=== PATIENT | female | born 1950 | race Caucasian/White ===

== ENCOUNTER 2017-12-25 19:23 | Inpatient (IN) ==
[2017-12-25] MEDS ORDERED: 0.9 % Sodium Chloride 1,000 ML ONE (19:47)
[2017-12-25] MEDS ORDERED: *HR* Heparin 10,000 UNIT/10 ML VIAL ONE (19:47)
[2017-12-25] MEDS ORDERED: ISOVUE-370 200 ML INFUS..BTL IV ONE ×2 (19:47→19:58)
[2017-12-25] MEDS ORDERED: Heparin 1,000 UNITS/500 mL 500 ML ONE (19:47)
[2017-12-25] MEDS ORDERED: Nitroglycerin 1,000 MCG/10 ML VIAL IV ONE (19:48)
[2017-12-25] MEDS ORDERED: *HR* FentaNYL (PF) 250 MCG/5 ML VIAL ONE (19:59)
[2017-12-25] MEDS ORDERED: *HR* Bivalirudin 250 MG VIAL IVC ONE (19:59)
[2017-12-25] MEDS ORDERED: *HR* Midazolam HCl 5 MG/5 ML VIAL IVP ONE (19:59)
--- NOTE | 2017-12-25 20:40 | Cardiology History & Physical ---
Date of Encounter: 12/25/17 Time of Encounter: 20:38 Assessment and Plan (1) Acute coronary syndrome Current Visit: Yes Status: Acute The assessment and plan as outlined above was discussed with the patient and/or family members who expressed understanding and agreement. All questions were answered. Recommend cardiac catheterization. History of Present Illness Chief complaint: Chest pain HPI: Ms. Law is a 67 year old female who presented to an outside hospital with complaints of chest discomfort. She describes chest discomfort which was present all day yesterday and today. She describes as pressure-like with associated nausea and diaphoresis. She also had shortness of breath. She radiation down her arms. She thought that it was a panic attack. Troponin is 13. She continues to have chest pain. Past Med Surg Social Fam HX - Past Medical History Medical history: arthritis, hyperlipidemia, hypertension, other (Hyperlipidemia , anxiety) Psychiatric history: panic disorder - Social History Smoking Status: Current every day smoker Smokeless Tobacco Status: No Alcohol use: none Drug use: none Medications and Allergies ALPRAZolam [Xanax 0.5 MG Tablet] 0.5 mg PO TID PRN 12/25/17 [History] Amlodipine Besylate/Benazepril [Lotrel 10-20 mg Capsule] 1 each PO DAILY [History] Atorvastatin [Lipitor] 40 mg PO HS 12/25/17 [History] Levothyroxine [Synthroid] 88 mcg PO DAILY 12/25/17 [History] Metoprolol [Lopressor] 25 mg PO BID 12/25/17 [History] Quetiapine Fumarate [SEROquel] 25 mg PO HS 12/25/17 [History] Venlafaxine XR (24 HR) [Effexor XR] 150 mg PO DAILY 12/25/17 [History] 3 Allergy/AdvReac Type Severity Reaction Status Date / Time No Known Allergies Allergy Verified 12/25/17 17:39 All Systems Review: The remainder of the systems were reviewed and are negative Physical Examination General: Conversant, No Apparent Distress HEENT: Atraumatic, Normocephaly, Mucus Membranes Moist Neck: No JVD, Normal carotid pulses Cardiac: Reg Rate and Rhythm, Normal S1 and S2, No Murmur Lungs: Normal Breath Sounds, No Wheeze, Rales, Rhonchi Neuro: Alert and responsive, No focal deficits noted Abdomen: Soft, Non-Tender Skin: No rashes noted on visualized skin Musculoskeletal: No Chest Wall Tenderness Extremities: No Clubbing, No Cyanosis, No Edema, Normal Pulses Results - EKG Interpretation EKG results cardiology: personally reviewed
--- NOTE | 2017-12-25 20:42 | Pre-Sedation Evaluation ---
Pre-sedation evaluation - Pre-sedation checklist Date of procedure: 12/25/17 Recent Vitals: Cardiac catheterization with possible coronary intervention H&P (including ROS) documented in medical record: Yes Previous reaction to sedatives/anesthetics: No Dietary Status: unknown Airway Assessment: Patient can open mouth completely, TMJ function normal Dentition: poor dentition Possible difficult airway: No ASA Classification *see protocol: CLASS II-Mild systemic disease Plan of Care: Pt appropriate candidate for procedure/moderate/conscious sedation
[2017-12-25] MEDS ORDERED: Tirofiban 12.5 MG/250ML 12.5 MG/250 ML BAG ONE (20:53)
--- NOTE | 2017-12-25 21:54 | Invasive Diagnostic Lab Proc ---
Name: Veronica Law Date of Study: 12/25/2017 Date: 1950 Ht: 64.2in Medical Record#: [id number] Age: 67 Wt: 191.80lb Gender: Female BSA: 1.93 Order #: [id number] BMI: 32.74 Physicians Procedure Physician: Vinnie Monterroso MD Referring MD: Referring MD: Staff Name Position Time In Emelia Gould RN Chief [facility] Division 07:56 PM Sandra Singh RT (R) Monitor 07:56 PM Kia, Snehal RT (R) Scrub 07:57 PM Indications Indication Non-Stemi Procedures Performed Procedure L HRT ARTERY/VENTRICLE ANGIO PRQ CARD BM STENT W/ANGIO 1 VSL Pre-Procedure Checklist Informed consent is complete signed and on chart. H&P is on chart. ID band is on and ID verified with patient. Patient NPO for procedure The procedure was described for the patient and questions were answered. ECG is on chart. Plan of Care Patient will tolerate the procedure without complications. Adequate level of comfort will be maintained. Hemodynamics will remain stable Patient will recover from procedure without complications. Respiratory function will be maintained. Cardiac rhythm will remain stable. Patient temperature will be maintained. Patient and/or family have verbalized understanding of the procedure. Patient Education Intravenous Access Time IV Size Location DC'd Fluid/Drip Rate Units RN 20g 1 1/4" Patent On Arrival Lt Antecubital Emelia Gould RN 18g 1 1/4" Patent On Arrival Rt Arm 0.9NaCl 25 ml/hr Emelia Gould RN Allergies No Known Allergies NKDA Vital Signs Time BP (mmHg) HR (bpm) O2 Sat. RR (bpm) LOC 07:56 PM 131 / 97 97 96 % 08:36 PM / % 5 = Fully awake and oriented or at pre-proc level 08:36 PM / % 4 = Oriented but drowsy 08:51 PM / % 4 = Oriented but drowsy 08:34 PM 178 / 106 81 100 % 08:38 PM 158 / 97 97 100 % 17 08:44 PM 165 / 100 97 100 % 21 08:48 PM 140 / 98 96 100 % 15 08:54 PM 158 / 99 95 99 % 19 08:59 PM 162 / 100 94 99 % 20 09:03 PM 157 / 81 103 98 % 31 09:09 PM 160 / 96 93 97 % 29 09:13 PM 144 / 80 93 96 % 21 09:19 PM 137 / 82 91 99 % 21 09:23 PM 141 / 79 89 99 % 21 Procedural Medications Time Medication Dose Units Method Given By 08:35 PM Versed 2 mg Intravenous Emelia Gould RN 08:35 PM Fentanyl 50 mcg Intravenous Emelia Gould RN 08:35 PM Oxygen 2 L/min nasal cannula Emelia Gould RN 08:46 PM Lidocaine 2% 20 ml Subcutaneous Vinnie Monterroso MD 08:58 PM Aggrastat 12.5mg/250ml 42 ml Intravenous Emelia Gould RN 08:59 PM Aggrastat Bolus: 42 ml Intravenous Emelia Gould RN 08:59 PM Aggrastat 12.5mg/250ml 15 ml/hr Intravenous Emelia Gould RN 09:03 PM Nitroglycerin 200 mcg Intracyosvanyary Vinnie Monterroso MD 09:10 PM Nitroglycerin 200 mcg Intracoronary Vinnie Monterroso MD ASA Classification: 2 Rufino Score Preprocedure Postprocedure Activity 2- Moves 4 extremities sustained head lift Activity 2- Moves 4 extremities sustained head lift Circulation 2- SBP +/= 20 points of pre-anesthetic level Circulation 2- SBP +/= 20 points of pre-anesthetic level Consciousness 2- Awake and alert oriented x 3 Consciousness 2- Awake and alert oriented x 3 O2 Saturation 2- Able to maintain O2 satruation of 92% on room air O2 Saturation 2- Able to maintain O2 satruation of 92% on room air Respiratory 2- Able to deep breathe and cough well Respiratory 2- Able to deep breathe and cough well Total Score 10 Total Score 10 Contrast Agent: Isovue Diagnostic Contrast: 128 ml Total Contrast: 128 ml Fluoro Dose: 5 mGy Activated Clotting Time Time Seconds to Clot 08:52 PM 259 Procedure Log Time Note Enter By 07:56 PM Emelia Gould RN Position: Chief [facility] Division Time in: 19:56 ejohnson 07:57 PM Sandra Singh RT (R) Position: Monitor Time in: 19:56 ejohnson 07:57 PM Snehal Adam RT (R) Position: Scrub Time in: 19:57 ejohnson 07:57 PM Patient charges- Angio tray pack, Navilyst 3mm J, Pulse Oximetry and ACIST tubing and transducer ejohnson 07:57 PM IV Supplies used: J loop Angio Cath. ejohnson 07:57 PM Case Delayed Emergent ejohnson 08:00 PM CathStat 08:32 PM Vitals capture started with the following parameters, Patient=Adult, Interval=5 min, Initial Octuvigk=120 mmHg, Deflation Rate=5 mmHg, Cuff placed on Right Arm 08:33 PM Recorded ECG: SK=243 Condition=Condition 1 08:33 PM Pt arrived to packing house laborer 2 at 20:33 dspell 08:33 PM Physician arrived 20:33 dspell 08:33 PM Hair removed from procedure site in holding area using clippers. Bilateral groin prepped with Chloraprep by Emelia Gould RN, then patient was draped. Skin intact. 08:34 PM HR=81 bpm, ETQN=251/106 mmhg, SoN3=912.0 %, Comment=NSR 08:35 PM Meet and greet completed 08:35 PM Sign in performed according to hospital policy. 08:35 PM Procedure start 20:35 08:35 PM Time: 20:35 Versed 2 mg Intravenous [facility] 08:35 PM Time: 20:35 Fentanyl 50 mcg Intravenous Given by Emelia Gould RN brianne 08:35 PM Time: 20:35 Oxygen on at 2 L/min per nasal cannula [facility] 08:36 PM Time: 20:36 Patient comfortable and pain free: Yes 08:36 PM Time: 20:36LOC: 5 = Fully awake and oriented or at pre-proc level 08:36 PM Clinical Presentation: Non-STEMI 08:38 PM HR=97 bpm, AHAS=318/97 mmhg, MyM7=944.0 %, Resp=17 B/min, Comment=NSR 08:39 PM Pressure channel 1 zero failed. 08:39 PM Pressure channel 1 zeroed. 08:44 PM HR=97 bpm, XZSJ=864/100 mmhg, DwV1=135.0 %, Resp=21 B/min, Comment=NSR 08:45 PM Time out performed according to hospital policy 08:46 PM Time: 20:46 20 ml Lidocaine 2% to right groin Subcutaneous Given by Vinnie Monterroso MD dspell 08:47 PM Access obtained by percutaneous puncture. 6Fr 10cm Terumo Eldridge sheath placed in right Femoral artery. [id number] dspellman 08:47 PM Micro-Introducer Kit utilized for sheath placement dspellman 08:48 PM HR=96 bpm, SXQT=417/98 mmhg, BoN2=402.0 %, Resp=15 B/min, Comment=NSR 08:48 PM ACT drawn dspell 08:49 PM 5Fr FL 4 catheter inserted over the wire [facility] dspell 08:49 PM 0.035 145cm Navilyst 3mmJ wire [id number] dspellman 08:49 PM LCA angiography performed in multiple views. dspellman 08:49 PM Recorded Pressure: Ao, WS=719, Condition=Condition 1 (Aorta) Ao 141/77/105 08:49 PM Recorded Pressure: Ao, HR=95, Condition=Condition 1 (Aorta) Ao 134/92/112 08:51 PM Catheter removed dspell 08:51 PM 5Fr FR 4 catheter inserted over the wire [facility] dspell 08:51 PM RCA angiography performed in multiple views. dspell 08:51 PM Time: 20:36 Patient comfortable and pain free: Yes dspellman 08:51 PM Time: 20:36LOC: 4 = Oriented but drowsy dspellman 08:52 PM Recorded Pressure: Ao, HR=94, Condition=Condition 1 (Aorta) Ao 159/83/116 08:52 PM Catheter removed dspell 08:52 PM At 20:52 the ACT was 259 seconds. dspell 08:53 PM 5Fr Pigtail catheter inserted over the wire [facility] dspell 08:53 PM Catheter selectively placed in left ventricle dspell 08:54 PM HR=95 bpm, MREM=239/99 mmhg, SpO2=99.0 %, Resp=19 B/min, Comment=NSR 08:54 PM Recorded Pressure: LV, HR=96, Condition=Condition 1 (Left Ventricle) LV 157/0/42 08:54 PM Recorded Pressure: LV, Ao, HR=98, Condition=Condition 1 (Left Ventricle) LV 162/1/32, (Aorta) Ao 164/70/117 08:55 PM Bolus angiogram of left Ventricle complete: 8 ml/sec for a total of 24 mls dspellman 08:55 PM Catheter removed dspell 08:55 PM PCI Status Urgent 08:55 PM PCI Indication: PCI for high risk Non-STEMI or unstable angina dsp 08:56 PM PCI lesion in Mid Circumflex. Pre Stenosis: 100 Pre YOKASTA Flow: 0: No Flow/No perfusion :56 PM 6Fr XB LAD 3.5 Cordis guide catheter was used to cannulate the PCI vessel successfully. reused? No :56 PM Recorded Pressure: Ao, HR=98, Condition=Condition 1 (Aorta) Ao 152/84/114 08:57 PM .014 ChoICE PT Extra Support 182cm guide wire across target lesion- successful. reused? No :57 PM Inflation device was opened. 08:59 PM HR=94 bpm, NXPT=147/100 mmhg, SpO2=99.0 %, Resp=20 B/min, Comment=NSR 08:59 PM Time: 20:59 Aggrastat Bolus: 42 ml Intravenous Given by Emelia Gould RN Werner pump 08:59 PM Time: 20:59 Aggrastat 12.5mg/250ml 15 ml/hr Intravenous Given by Emelia Gould RN Werner pump [facility] 09:02 PM Pronto thrombectomy pass # 1 for 30 ml total fluid. 09:03 PM Time: 21:03 Nitroglycerin 200 mcg Intracoronary Given by Vinnie Monterroso MD 09:03 PM MF=168 bpm, YFXS=579/81 mmhg, SpO2=98.0 %, Resp=31 B/min, Comment=NSR 09:04 PM 2.25mm x 12mm Synergy drug-eluting stent across target lesion- successful Lot #[id number] 09:04 PM Stent deployed @ 18 petra for 13 seconds 09:05 PM Stent delivery system removed intact. 09:06 PM Time: 20:51LOC: 4 = Oriented but drowsy 09:06 PM Time: 20:51 Patient comfortable and pain free: Yes 09:07 PM 2.0 mm x 20mm NC Emerge balloon across target lesion- successful. reused? No : PM Balloon inflated @ 20 petra for 24 seconds dspell 09:09 PM HR=93 bpm, VZDH=130/96 mmhg, SpO2=97.0 %, Resp=29 B/min, Comment=NSR 09:09 PM Balloon inflated @ 20 petra for 17 seconds dspell 09:09 PM Balloon catheter removed intact. dspell 09:10 PM Time: 21:10 Nitroglycerin 200 mcg Intracoronary Given by Vinnie Monterroso MD dspell 09:13 PM HR=93 bpm, ZUWI=695/80 mmhg, SpO2=96.0 %, Resp=21 B/min, Comment=NSR 09:13 PM PCI lesion in Distal Circumflex. Pre Stenosis: Pre YOKASTA Flow: dsp 09:14 PM 2.25mm x 28mm Synergy drug-eluting stent across target lesion- successful Lot #[id number] dspell 09:14 PM Stent deployed @ 16 petra for 20 seconds dspell 09:14 PM Stent balloon reinflated @ 18 petra for 6 seconds dspell 09:15 PM Stent delivery system removed intact. dspell 09:15 PM Guide wire removed intact. dspell 09:18 PM Bolus angiogram of right Femoral complete: 4 ml/sec for a total of 7 mls dspell 09:18 PM Procedure completed at 21:18 dspellman 09:18 PM Did you address YOKASTA flow and Dominance? Yes dspell 09:19 PM HR=91 bpm, PBAV=332/82 mmhg, SpO2=99.0 %, Resp=21 B/min, Comment=NSR 09:19 PM Sign out completed: Radiation Dose 847.42 mGy Fluoro Time: 5.1 Isovue 370 - 200ml contrast 128 ml given by Vinnie Monterroso MD. Complications: NoneCardiac Rehab Consult needed: YesConfirmed administered medications: Yes dspell 09:20 PM Isovue 370 - 200ml,1 Bottle(s) used. dspell 09:20 PM Arterial sheath pulled, Angio-seal closure device used and was Successful S/N [id number]. dspell 09:20 PM Estimated Blood Loss: minimal dspell 09:20 PM Post ECG NSR dspell 09:20 PM Post Blood Pressure 137/82 dspell 09:21 PM 21:20 Post Pulses Bilateral DP & PT 1+ dspell 09:21 PM Information taught Cardiac Cath, PCI, and Angioseal dspell 09:21 PM Education needs Procedure, Plan of Care, and Responsibilities of Patient in Care dspell 09:21 PM Learning barriers :None dspell:21 PM Education Methods Verbal ell:21 PM Education evaluation Able to repeat information :21 PM Time: 21:06 Patient comfortable and pain free: Yes dspell 09:21 PM Site status No bleeding/hematoma - Rt Groin as reported by Sites, Snehal RT (R) at 21:21 dspell:21 PM Opsite applied dsp: PM Delay to floor No dspell: PM Family placed in consult room. dspell 09:22 PM Complications: None : PM Fluoro Time: 5.1 : PM Isovue 370 - 200ml contrast 128 ml given by Vinnie Monterroso MD. : PM Radiation Dose 5.1 mGy :23 PM HR=89 bpm, SMKL=923/79 mmhg, SpO2=99.0 %, Resp=21 B/min, Comment=NSR 09:26 PM Coronary Dominance: right dsp 09:26 PM Lesion found in Mid LAD. Pre Stenosis: 70 Pre YOKASTA Flow: 3: Complete and Brisk Flow/Perfusion 09:26 PM Mid/Distal Left Anterior Descending Coronary Artery and diagonal branches with 70% stenosis. If graft is supplying this area, 0 % stenosis dsp:27 PM Lesion found in Mid RCA. Pre Stenosis: 70 Pre YOKASTA Flow: 3: Complete and Brisk Flow/Perfusion 09:35 PM Report given to Jose VALE Pt taken to 2N Room #5. 21:34 dspell 09:36 PM Time: 21:21 Patient comfortable and pain free: Yes dspell 09:37 PM Patient out of room: 21:36 [email or web address] Complications Complication None None Hemodynamics Pressures Site Systolic/A Wave Diastolic/V Wave Mean AO 141 77 105 AO 134 92 112 AO 159 83 116 LV 157 0 42 LV 162 1 32 AO 164 70 117 AO 152 84 114 Post Procedure Information Blood Pressure: 137/82 mmHg Rhythm: NSR Post procedural instructions were given Closure Device Time Device Success/Fail 12/25/2017 9:37:00 PM Angio-Seal VIP Successful Site Checks Time Location Status Staff Sheath In? Note 09:21 PM Rt Groin No bleeding/hematoma Sites, Snehal RT (R) Pulses Time Site Pre-Procedure Post-Procedure Note 9:20:00 PM Bilateral DP & PT 1+ Updated by RT Riana (R) on 12/25/2017 9:44:59 PM RT Riana electronically signed on 12/25/2017 9:46:54 PM with status of Final
--- NOTE | 2017-12-25 21:55 | Procedure Note ---
Date of procedure: 12/25/17 Pre-op diagnosis: Non-STEMI Post-op diagnosis: same Procedure: LM-normal; LAD-70% mid; CX-100% mid; 80% distal; RCA-70% mid, dominant; LVEF 55 % with lateral hypokinesis; PCI of CX 100% to 0% mid with a 2.25 mm x 12 mm Synergy EDWAR and 80% to 0% distal with a 2.25 mm x 28 mm Synergy EDWAR. Impression: 1. Multivessel CAD with occlusion of the circumflex which was revascularized with drug-eluting stent implantation 2. 2. Borderline significant stenosis of 70% in the mid LAD and mid RCA. 3. Preserved LV systolic function. Plan: 1. Aspirin indefinitely. 2. Plavix/equivalent for minimum of 1 year. 3. Beta behzad, statin. 4. LAD and RCA stenoses will need additional evaluation/treatment. 5. Smoking cessation discussed. Anesthesia: IV sedation Surgeon: Vinnie Monterroso Was there an blood donor unit assistant present: No Estimated blood loss (cc): 20 Specimen: None sent Pathology: none sent Condition: stable Disposition: PACU
[2017-12-25] MEDS ORDERED: Tirofiban 12.5 MG/250ML 12.5 MG/250 ML BAG IVC SCH (22:00)
[2017-12-26 04:58] LABS: Calcium 9.4 mg/dL (8.6-10.3); Chol/HDL Ratio 4.7 (0-4.9); Potassium 3.6 mEq/L (3.5-5.1)
[2017-12-26] MEDS: Aspirin 81 MG TAB.CHEW PO SCH (08:36)
--- NOTE | 2017-12-26 09:04 | Cardiology Progress Note ---
Date of Encounter: 12/26/17 Time of Encounter: 08:30 Assessment and Plan (1) Acute coronary syndrome Current Visit: Yes Status: Acute Patient presented as NSTEMI, urgently taken to metallurgical laboratory assistant due to continued chest pain despite medical therapy. Initial troponin 13.48. [place] 12/25/17: s/p successful PTCA/EDWAR to mid and distal LCx; has remaining moderate-severe CAD--70% mLAD and 70% mRCA. EF 55% TTE: pending. Emphasized placed on the importance of uninterrupted DAPT (asa + plavix) for a minimum of 1 year--pt. verbalized understanding. Continue statin, betablocker. Cardiac rehab consult. Discussed with Dr. Urbano, will review [place] films to determine if staged PCI recommended. Start Heparin SC for VTE prophylaxis. Will need continued monitoring for an additional 24 hours d/t AMI. (2) Essential hypertension Current Visit: Yes Status: Acute Controlled, continue betablocker for now. (3) HLD (hyperlipidemia) Current Visit: Yes Status: Acute Continue statin. Risk factor modification emphasized. Qualifiers: Hyperlipidemia type: mixed hyperlipidemia Qualified Code(s): E78.2 - Mixed hyperlipidemia (4) History of depression Current Visit: Yes Status: Acute Pt reports hx of significant depression and panic attacks. Follows with Counseling as outpatient. Continue home medications including prn xanax. (5) Tobacco abuse Current Visit: Yes Status: Acute Smoking cessation counseling provided. Has no plans to quit. Denies need for nicotine patch. Discussion w patient/family: The assessment and plan as outlined above was discussed with the patient and/or family members who expressed understanding and agreement. All questions were answered. Thank you for involving us in the care of your patient. Please call with any questions. The patient will be discussed and reviewed with Dr. Brooks; changes to be made accordingly. Subjective Principal diagnosis: ACS Interval history: Seen and examined. Patient initially presented to [place] ED yesterday with complaints of chest heaviness with radiation down bilateral arms/neck. She continued to have chest pain despite medical therapy and was urgently taken to the metallurgical laboratory assistant and is s/p PCI to mLCx, EF preserved per LV gram. Denies chest pain /discomfort overnight. Results of LHC discussed. Denies any other CV symptoms overnight. Objective Vital Signs, Last 4 Hours Temp Pulse Resp BP Pulse Ox 12/26/17 07:33 98.6 F 90 14 116/74 95 General: Conversant, No Apparent Distress HEENT: Atraumatic, Normocephaly, Mucus Membranes Moist Neck: No JVD, Normal carotid pulses Cardiac: Reg Rate and Rhythm, Normal S1 and S2, No Murmur Lungs: Normal Breath Sounds, No Wheeze, Rales, Rhonchi Neuro: Alert and responsive, No focal deficits noted Abdomen: Soft, Non-Tender Skin: No rashes noted on visualized skin Musculoskeletal: No Chest Wall Tenderness Extremities: No Clubbing, No Cyanosis, No Edema, Normal Pulses Other: right groin cath site: dressing clean, dry, and intact. No oozing or bleeding noted. +2 DP/PT pulses. Results 12/26/17 04:23 Lab Results 12/26/17 04:23 Sodium 137 Potassium 3.6 Chloride 108 H Carbon Dioxide 23 BUN 22 Creatinine 1.14 Glucose 116 H Calcium 9.4 Active Medications Acetaminophen (Tylenol) 500 mg PO Q6HR PRN PRN Reason: Mild Pain Stop: 06/26/18 21:58 Last Admin: 12/25/17 23:16 Dose: 500 mg Alprazolam (Xanax) 1 mg PO TID PRN; Protocol PRN Reason: Anxiety Stop: 06/27/18 09:02 Aspirin (Aspirin) 81 mg PO DAILY [facility] Stop: 06/27/18 09:01 Last Admin: 12/26/17 08:36 Dose: 81 mg Atorvastatin Calcium (Lipitor) 80 mg PO HS [facility] Stop: 06/27/18 21:01 Clopidogrel Bisulfate (Plavix) 75 mg PO DAILY [facility] Stop: 06/27/18 09:01 Last Admin: 12/26/17 08:36 Dose: 75 mg Heparin Sodium (Porcine) (Heparin) 5,000 unit SQ Q12HCO [facility] Stop: 06/27/18 09:16 Levothyroxine Sodium (Synthroid) 88 mcg PO 0630 [facility] Stop: 06/28/18 06:31 Metoprolol Tartrate (Lopressor) 25 mg PO BID [facility] Stop: 06/27/18 09:01 Last Admin: 12/26/17 08:36 Dose: 25 mg Quetiapine Fumarate (Seroquel) 25 mg PO HS [facility] PRN Reason: Protocol Stop: 06/27/18 21:01 Trazodone HCl (Trazodone) 100 mg PO HS [facility] Stop: 06/27/18 21:01 Venlafaxine HCl (Effexor Xr) 300 mg PO DAILY [facility] PRN Reason: Protocol Stop: 06/27/18 09:16 - Imaging and Cardiology Echo: pending Cardiac cath: report reviewed Other Results: 12 hour tele: avg HR=92 SR with frequent PVCs/bigeminy - EKG Interpretation EKG results cardiology: personally reviewed
[2017-12-26] MEDS: Venlafaxine XR (24 HR) 150 MG CAP.ER.24H PO SCH (10:36)
[2017-12-26] MEDS: *HR* Heparin 5,000 UNIT/ML VIAL SQ SCH ×2 (10:36→18:10)
[2017-12-26] MEDS: ALPRAZolam 1 MG TABLET PO PRN ×2 (10:37→19:33)
[2017-12-26] MEDS: traZODone 50 MG TABLET PO SCH (18:12)
[2017-12-27] MEDS: *HR* Heparin 5,000 UNIT/ML VIAL SQ SCH ×2 (05:15→16:34)
[2017-12-27 05:32] LABS: Basophils # 0.1 K/mcL (0.0-0.2); Basophils % 0.7 %; Eosinophils # 0.2 K/mcL (0.0-0.6); Hemoglobin 13.4 g/dL (11.5-15.4); Immature Granulocytes % 0.7 % (0-4); Lymphocytes # 2.6 K/mcL (0.6-4.6); Lymphocytes % 21.4 %; Mean Corpuscular HGB Conc 31.9 g/dL (31.6-35.5); Mean Corpuscular Hemoglobin 29.1 pg (28.0-33.3); Mean Corpuscular Volume 91.1 fL (83.0-100.0); Mean Platelet Volume 11.4 fL (9.4-12.4); Monocytes # 1.2 K/mcL (0.0-1.3); Neutrophils # 7.9 K/mcL (1.6-8.9); Platelet Count 201 K/mcL (140-400); Red Blood Count 4.61 M/mcL (3.82-4.97); Segmented Neutrophils % 65.2 %
[2017-12-27 05:51] LABS: Calcium 9.3 mg/dL (8.6-10.3); Magnesium 2.2 mg/dL (1.6-2.6); Potassium 3.6 mEq/L (3.5-5.1)
[2017-12-27] MEDS: Aspirin 81 MG TAB.CHEW PO SCH (08:22)
[2017-12-27] MEDS: ALPRAZolam 1 MG TABLET PO PRN ×2 (08:22→16:34)
[2017-12-27] MEDS ORDERED: 0.9 % Sodium Chloride 1,000 ML IVC SCH (09:00)
--- NOTE | 2017-12-27 09:31 | Cardiology Progress Note ---
Date of Encounter: 12/27/17 Time of Encounter: 08:30 Assessment and Plan (1) Acute coronary syndrome Current Visit: Yes Status: Inactive Patient presented as NSTEMI, urgently taken to central lab technician due to continued chest pain despite medical therapy. Initial troponin 13.48. [facility] 12/25/17: s/p successful PTCA/EDWAR to mid and distal LCx; has remaining moderate-severe CAD--70% mLAD and 70% mRCA. EF 55% TTE 12/26/17: LVEF 50%, mild cLVH, mild segemental LV systolic dysfunction (mid inferior lateral and basal inferior lateral) Emphasized placed on the importance of uninterrupted DAPT (asa + plavix) for a minimum of 1 year--pt. verbalized understanding. Continue statin, betablocker. Cardiac rehab consult. Recommend staged PCI of LAD as inpatient, hold off today due to mild SCr bump. Will start IVF and plan for staged PCI in AM if kidney function will allow. Start Heparin SC for VTE prophylaxis. Will need continued monitoring for an additional 24 hours d/t AMI. (2) Essential hypertension Current Visit: Yes Status: Acute Controlled, continue betablocker for now. (3) HLD (hyperlipidemia) Current Visit: Yes Status: Acute Continue statin. Risk factor modification emphasized. Qualifiers: Hyperlipidemia type: mixed hyperlipidemia Qualified Code(s): E78.2 - Mixed hyperlipidemia (4) History of depression Current Visit: Yes Status: Acute Pt reports hx of significant depression and panic attacks. Follows with Counseling as outpatient. Continue home medications including prn xanax. (5) Tobacco abuse Current Visit: Yes Status: Acute Smoking cessation counseling provided. Has no plans to quit. Denies need for nicotine patch. Discussion w patient/family: The assessment and plan as outlined above was discussed with the patient and/or family members who expressed understanding and agreement. All questions were answered. Thank you for involving us in the care of your patient. Please call with any questions. The patient will be discussed and reviewed with Dr. Brooks; changes to be made accordingly. Subjective Principal diagnosis: ACS Interval history: Seen and examined. Patient initially presented to [facility] ED yesterday with complaints of chest heaviness with radiation down bilateral arms/neck. She continued to have chest pain despite medical therapy and was urgently taken to the central lab technician and is s/p PCI to mLCx, EF preserved per LV gram. Denies chest pain/discomfort overnight. Mild SCr bump, will hold off on staged PCI until tomorrow to allow for gentle IV hydration. Objective Vital Signs, Last 4 Hours Temp Pulse Resp BP 12/27/17 06:33 98.5 F 74 16 105/73 General: Conversant, No Apparent Distress HEENT: Atraumatic, Normocephaly, Mucus Membranes Moist Neck: No JVD, Normal carotid pulses Cardiac: Reg Rate and Rhythm, Normal S1 and S2, No Murmur Lungs: Normal Breath Sounds, No Wheeze, Rales, Rhonchi Neuro: Alert and responsive, No focal deficits noted Abdomen: Soft, Non-Tender Skin: No rashes noted on visualized skin Musculoskeletal: No Chest Wall Tenderness Extremities: No Clubbing, No Cyanosis, No Edema, Normal Pulses Results 12/27/17 05:13 12/27/17 05:13 Lab Results 12/27/17 12/27/17 05:13 05:13 WBC 12.2 H Hgb 13.4 D Hct 42.0 Plt Count 201 Sodium 137 Potassium 3.6 Chloride 107 Carbon Dioxide 23 BUN 31 H Creatinine 1.36 H Glucose 97 Calcium 9.3 Magnesium 2.2 Active Medications Acetaminophen (Tylenol) 500 mg PO Q6HR PRN PRN Reason: Mild Pain Stop: 06/26/18 21:58 Last Admin: 12/25/17 23:16 Dose: 500 mg Alprazolam (Xanax) 1 mg PO TID PRN; Protocol PRN Reason: Anxiety Stop: 06/27/18 09:02 Last Admin: 12/27/17 08:22 Dose: 1 mg Aspirin (Aspirin) 81 mg PO DAILY ITZEL Stop: 06/27/18 09:01 Last Admin: 12/27/17 08:22 Dose: 81 mg Atorvastatin Calcium (Lipitor) 80 mg PO HS ITZEL Stop: 06/27/18 21:01 Last Admin: 12/26/17 21:59 Dose: 80 mg Clopidogrel Bisulfate (Plavix) 75 mg PO DAILY ITZEL Stop: 06/27/18 09:01 Last Admin: 12/27/17 08:22 Dose: 75 mg Heparin Sodium (Porcine) (Heparin) 5,000 unit SQ Q12HCO ITZEL Stop: 06/27/18 09:16 Last Admin: 03/01/18 05:15 Dose: 5,000 unit Sodium Chloride (0.9 % Sodium Chloride) 1,000 mls @ 100 mls/hr IVC .Q10H ITZEL Stop: 12/27/17 18:59 Levothyroxine Sodium (Synthroid) 88 mcg PO 0630 ITZEL Stop: 06/28/18 06:31 Last Admin: 12/27/17 05:15 Dose: 88 mcg Metoprolol Tartrate (Lopressor) 25 mg PO BID ITZEL Stop: 06/27/18 09:01 Last Admin: 12/27/17 08:23 Dose: 25 mg Quetiapine Fumarate (Seroquel) 25 mg PO HS [facility] PRN Reason: Protocol Stop: 06/27/18 21:01 Last Admin: 12/26/17 21:59 Dose: 25 mg Trazodone HCl (Trazodone) 100 mg PO HS [facility] Stop: 06/27/18 21:01 Last Admin: 12/26/17 18:12 Dose: Not Given Venlafaxine HCl (Effexor Xr) 300 mg PO DAILY [facility] PRN Reason: Protocol Stop: 06/27/18 09:16 Last Admin: 12/26/17 10:36 Dose: 300 mg - Imaging and Cardiology Echo: report reviewed Cardiac cath: report reviewed Other Results: 12 hour tele: avg HR=79 SR. - EKG Interpretation EKG results cardiology: personally reviewed - VTE Documentation of Mechanical Device: Graduated compression elastic hosiery Consult Discharge Plan - Plan Referrals: Roseline Salcido CNP [Advanced Practice Nurse] - 01/02/18 9:00 am Gina Coelho CNP [Partnered Physician] - (office will call you with an appointment)
[2017-12-27] MEDS: Venlafaxine XR (24 HR) 150 MG CAP.ER.24H PO SCH (11:45)
[2017-12-27] MEDS: traZODone 50 MG TABLET PO SCH (20:45)
[2017-12-28 05:09] LABS: Calcium 8.8 mg/dL (8.6-10.3); Potassium 3.8 mEq/L (3.5-5.1)
[2017-12-28] MEDS: *HR* Heparin 5,000 UNIT/ML VIAL SQ SCH ×2 (06:16→17:08)
[2017-12-28] MEDS ORDERED: Heparin 1,000 UNITS/500 mL 500 ML ONE (07:23)
[2017-12-28] MEDS ORDERED: *HR* Heparin 10,000 UNIT/10 ML VIAL ONE (07:23)
[2017-12-28] MEDS ORDERED: 0.9 % Sodium Chloride 1,000 ML ONE ×2 (07:23→09:05)
[2017-12-28] MEDS ORDERED: ISOVUE-370 200 ML INFUS..BTL IV ONE (07:23)
[2017-12-28] MEDS ORDERED: Nitroglycerin 1,000 MCG/10 ML VIAL IV ONE (07:23)
[2017-12-28] MEDS: Venlafaxine XR (24 HR) 150 MG CAP.ER.24H PO SCH (08:08)
[2017-12-28] MEDS: Aspirin 81 MG TAB.CHEW PO SCH (08:08)
[2017-12-28] MEDS ORDERED: 0.9 % Sodium Chloride 1,000 ML IVC SCH (08:45)
[2017-12-28] MEDS ORDERED: *HR* Midazolam HCl 2 MG/2 ML VIAL ONE ×2 (08:52→09:37)
[2017-12-28] MEDS ORDERED: *HR* Bivalirudin 250 MG VIAL IVC ONE (09:19)
--- NOTE | 2017-12-28 09:20 | Pre-Sedation Evaluation ---
Pre-sedation evaluation - Pre-sedation checklist Date of procedure: 12/25/17 Procedure: left heart cath Recent Vitals: Last Vital Signs Temp 98.4 F 12/28/17 07:00 Pulse 86 12/28/17 07:00 Resp 18 12/28/17 07:00 BP 116/74 12/28/17 07:00 Pulse Ox 98 12/28/17 07:00 H&P (including ROS) documented in medical record: Yes Previous reaction to sedatives/anesthetics: No Dietary Status: NPO after Midnight Airway Assessment: Patient can open mouth completely, TMJ function normal Dentition: No loose teeth or bridges, poor dentition Possible difficult airway: No ASA Classification *see protocol: CLASS III-Severe systemic disease Plan of Care: Pt appropriate candidate for procedure/moderate/conscious sedation , Risks/benefits of procedure/sedation discussed w/ patient/family, If not NPO; Risk of intake outweiged by necessity to perform procedure
--- NOTE | 2017-12-28 09:29 | Event Note ---
Date of Encounter: 12/28/17 Time of Encounter: 08:30 - Cardiology Event Note Seen and examined. No events overnight. No recurrent chest pain/discomfort overnight. Reviewed labs with patient. Discussed with Dr. Urbano, SCr remains stable. Plan for staged PCI to LAD today. Active Medications Acetaminophen (Tylenol) 500 mg PO Q6HR PRN PRN Reason: Mild Pain Stop: 06/26/18 21:58 Last Admin: 12/25/17 23:16 Dose: 500 mg Alprazolam (Xanax) 1 mg PO TID PRN; Protocol PRN Reason: Anxiety Stop: 06/27/18 09:02 Last Admin: 12/27/17 16:34 Dose: 1 mg Aspirin (Aspirin) 81 mg PO DAILY ITZEL Stop: 06/27/18 09:01 Last Admin: 12/28/17 08:08 Dose: 81 mg Atorvastatin Calcium (Lipitor) 80 mg PO HS ITZEL Stop: 06/27/18 21:01 Last Admin: 12/27/17 20:44 Dose: 80 mg Clopidogrel Bisulfate (Plavix) 75 mg PO DAILY ITZEL Stop: 06/27/18 09:01 Last Admin: 12/28/17 08:08 Dose: 75 mg Heparin Sodium (Porcine) (Heparin) 5,000 unit SQ Q12HCO ITZEL Stop: 06/27/18 09:16 Last Admin: 12/28/17 06:16 Dose: 5,000 unit Sodium Chloride (0.9 % Sodium Chloride) 1,000 mls @ 50 mls/hr IVC .Q20H ITZEL Stop: 06/29/18 08:46 Levothyroxine Sodium (Synthroid) 88 mcg PO 0630 ITZEL Stop: 06/28/18 06:31 Last Admin: 12/28/17 06:16 Dose: 88 mcg Metoprolol Tartrate (Lopressor) 25 mg PO BID ITZEL Stop: 06/27/18 09:01 Last Admin: 12/28/17 08:08 Dose: 25 mg Quetiapine Fumarate (Seroquel) 25 mg PO HS ITZEL PRN Reason: Protocol Stop: 06/27/18 21:01 Last Admin: 12/27/17 20:46 Dose: 25 mg Trazodone HCl (Trazodone) 100 mg PO HS ITZEL Stop: 06/27/18 21:01 Last Admin: 12/27/17 20:45 Dose: Not Given Venlafaxine HCl (Effexor Xr) 300 mg PO DAILY ITZEL PRN Reason: Protocol Stop: 06/27/18 09:16 Last Admin: 12/28/17 08:08 Dose: 300 mg
--- NOTE | 2017-12-28 10:02 | Invasive Diagnostic Lab Proc ---
Name: Veronica Law Date of Study: 12/28/2017 Date: 1950 Ht: 64.2in Medical Record#: [id number] Age: 67 Wt: 202.83lb Gender: Female BSA: 1.97 Order #: [id number] BMI: 34.63 Physicians Procedure Physician: Hilario Urbano DO Referring MD: Referring MD: Staff Name Position Time In Sites, Snehal RT (R) Monitor 09:13 AM Kiki Segundo RT (R) Scrub 09:13 AM Costa Barbosa RN Strategic Planner 09:13 AM Indications Indication Coronary Artery Disease, Staged PCI Procedures Performed Procedure PRQ CARD EDWAR STENT W/ANGIO 1 VSL Pre-Procedure Checklist Informed consent is complete signed and on chart. H&P is on chart. ID band is on and ID verified with patient. Patient NPO for procedure The procedure was described for the patient and questions were answered. Blood Pressure: 142/92 ECG is on chart. Rhythm: NSR Plan of Care Patient will tolerate the procedure without complications. Adequate level of comfort will be maintained. Hemodynamics will remain stable Patient will recover from procedure without complications. Respiratory function will be maintained. Cardiac rhythm will remain stable. Patient temperature will be maintained. Patient and/or family have verbalized understanding of the procedure. Patient Education Chief Complaint/Reason for Test: PCI Developmental Category: Geriatric (65+ years) Developmentally Appropriate for Age: Yes Learning Barriers: None Education Needs: Procedure Education Method: Verbal Information Taught: Cardiac Cath Educational Evaluation: Able to repeat information Intravenous Access Time IV Size Location DC'd Fluid/Drip Rate Units RN 08:43 AM 20g 1 /" Patent On Arrival Lt Antecubital 0.9NaCl 25 ml/hr Costa Barbosa RN Allergies No Known Allergies Vital Signs Time BP (mmHg) HR (bpm) O2 Sat. RR (bpm) LOC 09:13 AM 142 / 92 87 98 % 16 5 = Fully awake and oriented or at pre-proc level 09:13 AM 142 / 92 94 98 % 17 09:18 AM 136 / 89 84 96 % 25 09:23 AM 137 / 66 78 96 % 20 09:28 AM 148 / 86 62 96 % 20 09:33 AM 123 / 78 85 96 % 16 09:38 AM 136 / 69 90 95 % 18 09:43 AM 139 / 86 92 94 % 23 09:48 AM 152 / 102 60 94 % 18 Procedural Medications Time Medication Dose Units Method Given By 09:14 AM Versed 2 mg Intravenous Costa Barbosa RN 09:33 AM Lidocaine 2% 10 ml Subcutaneous Hilario Urbano DO 09:37 AM Versed 1 mg Intravenous Costa Barbosa RN 09:37 AM Oxygen 2 L/min nasal cannula Costa Barbosa RN 09:38 AM Angiomax 0.75mg/kg bolus: 13.5 ml Intravenous Costa Barbosa RN 09:38 AM Angiomax 1.75mg/kg/hr: 31.5 ml Intravenous Costa Barbosa RN 09:44 AM Nitroglycerin 100 mcg Intracoronary Hilario Urbano DO 09:46 AM Angiomax 1.75mg/kg/hr: ml Dc'd Costa Barbosa RN ASA Classification: CLASS II- Mild systemic disease (i.e. well-controlled diabetes, hypertension, asthma, cigarette smoking) Rufino Score Preprocedure Postprocedure Activity 2- Moves 4 extremities sustained head lift Activity 2- Moves 4 extremities sustained head lift Circulation 2- SBP +/= 20 points of pre-anesthetic level Circulation 2- SBP +/= 20 points of pre-anesthetic level Consciousness 2- Awake and alert oriented x 3 Consciousness 2- Awake and alert oriented x 3 O2 Saturation 2- Able to maintain O2 satruation of 92% on room air O2 Saturation 2- Able to maintain O2 satruation of 92% on room air Respiratory 2- Able to deep breathe and cough well Respiratory 2- Able to deep breathe and cough well Total Score 10 Total Score 10 Contrast Agent: Isovue Diagnostic Contrast: 55 ml Total Contrast: 55 ml Fluoro Dose: 169 mGy Procedure Log Time Note Enter By 09:11 AM CathStat 09:12 AM Recorded ECG: HR=89 Condition=Condition 1 09:12 AM Vitals capture started with the following parameters, Patient=Adult, Interval=5 min, Initial Mykoiaqm=608 mmHg, Deflation Rate=5 mmHg, Cuff placed on Right Arm 09:13 AM Pt arrived to laboratory chemist 2 at 09:13 [facility] 09:13 AM Snehal Adam RT (R) Position: Monitor [facility]: [facility] AM Kiki Segundo RT (R) Position: Scrub Time in: 09:13 [facility] 09:13 AM HR=94 bpm, ZMGV=300/92 mmhg, SpO2=98.0 %, Resp=17 B/min 09:13 AM Costa Barbosa RN Position: Strategic Planner Time in: :13 counts include 234 beds at the [facility] 09:13 AM Patient charges- Angio tray pack, Navilyst 3mm J, Pulse Oximetry and ACIST tubing and transducer jccounts include 234 beds at the [facility] :13 AM Physician arrived : [facility] : AM Meet and greet completed [facility] : AM Sign in performed according to hospital policy. [facility]:13 Procedure start : jccounts include 234 beds at the [facility] : AM Time: :13 Oxygen on at 2 L/min per nasal cannula by Costa Barbosa RN : AM Time: :13 Patient comfortable and pain free: Yes [facility] : AM Time: :13LOC: 5 = Fully awake and oriented or at pre-proc level jccounts include 234 beds at the [facility] :14 AM Clinical Presentation: Unstable angina [facility]:14 AM Hair removed from procedure site in holding area using clippers. Bilateral groin prepped with Chloraprep by Kiki Segundo (R), then patient was draped. Skin intact. [facility]:14 AM Time: :14 Versed 2 mg Intravenous Given by Costa Barbosa RN [facility] 09:18 AM HR=84 bpm, OFYO=372/89 mmhg, SpO2=96.0 %, Resp=25 B/min 09:23 AM HR=78 bpm, AWLU=381/66 mmhg, SpO2=96 %, Resp=20 B/min 09:24 AM Pressure channel 2 zeroed. 09:28 AM HR=62 bpm, CLNQ=380/86 mmhg, SpO2=96 %, Resp=20 B/min 09:32 AM PCI Status Urgent tsites 09:32 AM PCI Indication: Staged PCI tsites 09:32 AM Time out performed according to hospital policy tsites 09:32 AM PCI lesion in Proximal LAD. tsites 09:32 AM Inflation device was opened. tsites 09:33 AM Time: :33 10 ml Lidocaine 2% to left groin Subcutaneous Given by Hilario Urbano DO tsites 09:33 AM HR=85 bpm, SPMY=062/78 mmhg, SpO2=96.0 %, Resp=16 B/min 09:37 AM Time: 09:37 Versed 1 mg Intravenous Given by Costa Barbosa RN tsites 09:38 AM Micro-Introducer Kit utilized for sheath placement tsites 09:38 AM Access obtained by percutaneous puncture. 6Fr 10cm Terumo [place] sheath placed in left Femoral artery. [id number] tsites 09:38 AM HR=90 bpm, FIVP=929/69 mmhg, SpO2=95.0 %, Resp=18 B/min 09:38 AM Time: 09:38 Angiomax 0.75mg/kg bolus: 13.5 ml Intravenous Given by Costa Barbosa RN Werner pump tsites 09:38 AM Time: 09:38 Angiomax 1.75mg/kg/hr: 31.5 ml Intravenous Given by Costa Barbosa RN Werner pump tsites 09:39 AM 6Fr JL4 Runway guide catheter was used to cannulate the PCI vessel successfully. reused? No tsites 09:39 AM 0.035 145cm Navilyst 3mmJ wire [id number] tsites 09:39 AM LCA angiography performed in multiple views. tsites 09:39 AM .014 ChoICE PT Extra Support 300cm guide wire across target lesion- successful. reused? No tsites 09:39 AM Recorded Pressure: Ao, HR=83, Condition=Condition 1 (Aorta) Ao 125/76/98 09:40 AM Lesion found in Mid LAD. Pre Stenosis: 80 Pre YOKASTA Flow: 3: Complete and Brisk Flow/Perfusion tsites 09:40 AM Coronary Dominance: right tsites 09:40 AM Mid/Distal Left Anterior Descending Coronary Artery and diagonal branches with 80% stenosis. If graft is supplying this area, 0 % stenosis tsites 09:41 AM 2.5mm x 16mm Synergy drug-eluting stent across target lesion- successful Lot #[id number] tsites 09:43 AM HR=92 bpm, EMIA=617/86 mmhg, SpO2=94.0 %, Resp=23 B/min 09:43 AM Stent deployed @ 14 petra for 16 seconds tsites 09:44 AM Time: 09:44 Nitroglycerin 100 mcg Intracoronary Given by Hilario Urbano DO tsites 09:44 AM Stent delivery system removed intact. tsites 09:45 AM Guide wire removed intact. tsites 09:46 AM Bolus angiogram of left Femoral complete: hand injection tsites 09:47 AM Time: 09:46 Angiomax 1.75mg/kg/hr: ml Dc'd Given by Costa Barbosa RN Werner pump tsites 09:47 AM Procedure completed at 09:47 tsites 09:47 AM Did you address YOKASTA flow and Dominance? Yes tsites 09:48 AM HR=60 bpm, CXZG=596/102 mmhg, SpO2=94 %, Resp=18 B/min 09:48 AM Sign out completed: Radiation Dose 169 mGy Fluoro Time: 2.2 Isovue 370 - 200ml contrast 55 ml given by Hilario Urbano DO. Complications: NoneCardiac Rehab Consult needed: YesConfirmed administered medications: Yes tsites 09:48 AM Isovue 370 - 200ml,1 Bottle(s) used. tsites 09:48 AM Sheath left in place to be pulled on floor/holding areaV+Pad tsites 09:48 AM Estimated Blood Loss: minimal tsites 09:48 AM Post ECG NSR tsites 09:48 AM Post Blood Pressure 152/102 tsites 09:48 AM 09:48 Post Pulses Bilateral DP & PT 1+ tsites 09:49 AM Information taught Cardiac Cath and PCI tsites 09:49 AM Education needs Procedure, Plan of Care, and Responsibilities of Patient in Care tsites 09:49 AM Learning barriers :None tsites 09:49 AM Education Methods Verbal tsites 09:49 AM Education evaluation Able to repeat information tsites 09:49 AM Site status No bleeding/hematoma - Lt Groin as reported by Kiki Segundo RT (R) at 09:49 tsites 09:49 AM Opsite applied tsites 09:50 AM Report given to yuan VALE Pt taken to 2N Room #5. 09:50 tsites 09:50 AM Delay to floor No tsites 09:50 AM Patient out of room: 09:50 tsites 09:50 AM Family placed in consult room. tsites Complications Complication None Hemodynamics Pressures Site Systolic/A Wave Diastolic/V Wave Mean AO 125 76 98 Post Procedure Information Blood Pressure: 152/102 mmHg Rhythm: NSR Post procedural instructions were given Closure Device Time Device Success/Fail Mechanical Compression Site Checks Time Location Status Staff Sheath In? Note 09:49 AM Lt Groin No bleeding/hematoma Kiki Segundo RT (R) Pulses Time Site Pre-Procedure Post-Procedure Note 12/28/2017 8:44:00 AM Bilateral DP & PT 2+ 12/28/2017 8:44:00 AM Bilateral radial 2+ 9:48:00 AM Bilateral DP & PT 1+ Updated by Snehal Kia, RT (R) on 12/28/2017 9:54:22 AM Snehal Kia, RT electronically signed on 12/28/2017 9:54:43 AM with status of Final
--- NOTE | 2017-12-28 10:33 | Electrocardiograph Report ---
[address] [address] Test Date: 2017-12-26 Pat Name: Veronica Law Department: 110 Room: 2N05 Gender: F Metallographer: : 1950 Requested By: Vinnie Monterroso Order Number: [id number] Reading MD: Salbador Peoples DO Measurements Intervals Picher Rate: 92 P: 58 LA: 146 QRS: 0 QRSD: 101 T: 0 QT: 405 QTc: 455 Interpretive Statements SINUS RHYTHM WITH OCCASIONAL VENTRICULAR PREMATURE COMPLEXES POSSIBLE LEFT ATRIAL ENLARGEMENT NONSPECIFIC ST & T-WAVE ABNORMALITY Electronically Signed On 12-28-2017 10:31:25 EST by Salbador Peoples DO
[2017-12-28] MEDS: 0.9 % Sodium Chloride 1,000 ML IVC SCH (10:47)
[2017-12-28] MEDS ORDERED: *HR* Atropine Sulfate 1 MG/10 ML SYRINGE ONE (12:20)
[2017-12-28] MEDS: ALPRAZolam 1 MG TABLET PO PRN (14:37)
--- NOTE | 2017-12-28 20:08 | Electrocardiograph Report ---
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
[2017-12-28] MEDS: traZODone 50 MG TABLET PO SCH (20:14)
[2017-12-29] MEDS: 0.9 % Sodium Chloride 1,000 ML IVC SCH (02:34)
[2017-12-29 04:48] LABS: Basophils # 0.1 K/mcL (0.0-0.2); Basophils % 0.6 %; Eosinophils # 0.3 K/mcL (0.0-0.6); Eosinophils % 3.4 %; Hematocrit 35.5 % (35.3-44.9); Immature Granulocytes % 0.7 % (0-4); Lymphocytes # 1.8 K/mcL (0.6-4.6); Lymphocytes % 22.3 %; Mean Corpuscular HGB Conc 31.8 g/dL (31.6-35.5); Mean Corpuscular Hemoglobin 29.4 pg (28.0-33.3); Mean Corpuscular Volume 92.4 fL (83.0-100.0); Mean Platelet Volume 11.3 fL (9.4-12.4); Monocytes # 0.7 K/mcL (0.0-1.3); Monocytes % 8.4 %; Neutrophils # 5.3 K/mcL (1.6-8.9); Platelet Count 176 K/mcL (140-400); Red Blood Count 3.84 M/mcL (3.82-4.97); Segmented Neutrophils % 64.6 %
[2017-12-29 04:49] LABS: Hemoglobin 11.3 g/dL (11.5-15.4)
[2017-12-29 05:11] LABS: Calcium 8.3 mg/dL (8.6-10.3)
[2017-12-29] MEDS: ALPRAZolam 1 MG TABLET PO PRN (05:13)
[2017-12-29] MEDS: *HR* Heparin 5,000 UNIT/ML VIAL SQ SCH (05:14)
[2017-12-29 07:33] VITALS: BP 144/81
--- NOTE | 2017-12-29 07:48 | Discharge Summary ---
- NOTES TO OUTPATIENT PROVIDER Notes to Outpatient Provider: Follow-up with PCP within 1 week. Follow-up wit [facility] in 5-7 days. Office will call with appt date and time. Orders not resulted at time of discharge: n/a Date of Encounter: 12/29/17 Time of Encounter: 07:30 - Discharge Diagnosis (1) Acute coronary syndrome Priority: Primary Status: Acute (2) Essential hypertension Priority: Secondary Status: Chronic (3) HLD (hyperlipidemia) Priority: Secondary Status: Chronic Qualifiers: Hyperlipidemia type: mixed hyperlipidemia Qualified Code(s): E78.2 - Mixed hyperlipidemia (4) History of depression Priority: Secondary Status: Chronic (5) Tobacco abuse Priority: Secondary Status: Chronic - Hospital Course Hospital course: Ms. Law is a 67 year old female who presented as acute NSTEMI, urgently taken to farm laborer due to continued chest pain despite medical therapy. Initial troponin 13.48. She was taken to the farm laborer and culprit vessel was fixed (LCx) ; given existing obstructive CAD, she was recommended to remain as inpatient to stage LAD stenosis. (see cath reports below). She has been chest pain free during hospitalization. Mild renal dysfunction noted after first LHC, therefore staged PCI was prolonged x1 day to allow for IV hydration. C 12/25/17: s/p successful PTCA/EDWAR to mid and distal LCx; has remaining moderate-severe CAD--70% mLAD and 70% mRCA. EF 55% TTE 12/26/17: LVEF 50%, mild cLVH, mild segemental LV systolic dysfunction ( mid inferior lateral and basal inferior lateral) [facility] 12/28/2017: successful PTCA/EDWAR to mLAD, patent LCx stent. She has no complaints this morning upon exam. Mild amount of ecchymosis noted to right groin cath site. Left groin cath site stable. Blood pressure, labs, and vital signs stable. Kidney function stable this AM s/p LHC. Medication education discussed in detail including emphasis on importance of uninterrupted DAPT (asa + plavix) for a minimum of 1 year--pt. verbalized understanding. Otherwise she is on appropriate medical therapy for CAD. All questions and concerns were addressed, Ms. Law is being prepped for discharge to home in stable condition. The patient was discussed and reviewed with Dr. Brooks who agrees with plan as stated above. Time spent discussing smoking cessation with patient: 3 to 10 minutes - Time Spent with Patient Total time spent providing and/or coordinating discharge services: 30 minutes Less than 30 minutes Specific discharge activities: per post [facility] (femoral approach guidelines) please provide written copy. - Discharge Medications Prescriptions: Atorvastatin [Lipitor] 80 mg PO HS #30 tablet Clopidogrel [Plavix] 75 mg PO DAILY #30 tablet Nitroglycerin [Nitrostat] 0.4 mg SL PRN PRN #30 tab.subl PRN Reason: Chest Pain Home Medications: Levothyroxine [Synthroid] 88 mcg PO DAILY 12/25/17 [History] Metoprolol [Lopressor] 25 mg PO BID 12/25/17 [History] Quetiapine Fumarate [Seroquel] 25 mg PO HS 12/25/17 [History] Venlafaxine XR (24 HR) [Effexor Xr] 2 cap PO DAILY 12/25/17 [History] ALPRAZolam [Xanax 1 MG Tablet] 0.5 - 1 tab PO TID PRN 12/26/17 [History] Trazodone HCl 1 - 2 tab PO HS 12/26/17 [History] Aspirin 81 mg PO DAILY #30 tab.chew 12/29/17 [Rx] Atorvastatin [Lipitor] 80 mg PO HS #30 tablet 12/29/17 [Rx] Clopidogrel [Plavix] 75 mg PO DAILY #30 tablet 12/29/17 [Rx] Nitroglycerin [Nitrostat] 0.4 mg SL PRN PRN #30 tab.subl 12/29/17 [Rx] Allergies/Adverse Reactions: 3 Allergy/AdvReac Type Severity Reaction Status Date / Time No Known Allergies Allergy Verified 12/25/17 17:39 Date of admission: 12/25/17 21:57 Primary care physician: PCP NONE Consults: 12/25/17 21:57 Consult to Cardiac Rehabilitation-Phase1 [CONS] Routine Comment: Reason for Consult: AMI Call Completed: Yes Consult to Nurse Navigator [CONS] Routine Comment: Discharging clinician: Gina Coelho Anticipated date of discharge: 12/29/17 Physical Examination Vital Signs, Last 4 Hours Temp Pulse Resp BP Pulse Ox 12/29/17 07:29 98.6 F 78 18 144/81 96 General: Conversant, No Apparent Distress HEENT: Atraumatic, Normocephaly, Mucus Membranes Moist Neck: No JVD, Normal carotid pulses Cardiac: Reg Rate and Rhythm, Normal S1 and S2, No Murmur Lungs: Normal Breath Sounds, No Wheeze, Rales, Rhonchi Neuro: Alert and responsive, No focal deficits noted Abdomen: Soft, Non-Tender Skin: No rashes noted on visualized skin Musculoskeletal: No Chest Wall Tenderness Extremities: No Clubbing, No Cyanosis, No Edema, Normal Pulses Other: right groin cath site: small hematoma (dime sized), mild amount of ecchymosis at site.No oozing or bleeding noted. +2 DP/PT pulses. left groin cath site: mild amount of ecchymosis, site soft. No bleeding, oozing noted. +2 DP/PT pulses. - Patient Status Disposition: Home, Self-Care Condition: Good Functional capacity at discharge: independent ambulation Overall status at discharge: patient is progressing back to baseline - Discharge Instructions Follow Up With: Roseline Salcido CNP [Advanced Practice Nurse] - 01/02/18 9:00 am Gina Coelho CNP [Partnered Physician] - (office will call you with an appointment) Additional Instructions: RISK FACTORS: STOP SMOKING: If you smoke, STOP. Smoking or tobacco use significantly increases your risk of heart disease because nicotine causes the arteries to narrow or constrict. It also causes fats to stick to the artery. Your chances of having a heart attack are greatly increased if you continue to smoke. For more information, call the education line for smoking cessation 4-340-CJJGIZY EAT A LOW FAT/CHOLESTEROL/SODIUM DIET: This diet may help reduce your chances of having a heart attack. LIFTING: Avoid lifting anything more than 10 pounds for 5-7 days Prior to straining, laughing, sneezing and/or coughing, apply manual pressure directly over insertion site. ACTIVITY: You may walk or climb stairs as tolerated You can resume sexual activity as tolerated In general, you are encouraged to engage in a minimum of 30 minutes or more of moderate intensity physical activity, such as brisk walking, daily or at least 3 -4 times weekly BATHING Do not submerge the site into water (bath tub, hot tub, swimming pool) for 1 week. This can be a source for infection into the blood stream. You may shower after 24 hours SITE CARE: After 24 hours, you may remove the dressing and leave the site open to air. Keep the site clean and dry. Clean gently and pat dry. You can expect bruising and tenderness that gradually resolve within a week or two. Return to work as instructed per your physician Resume driving as instructed per physician Keep all scheduled follow up appointments Resume medications as instructed IMPORTANT: If prescribed a Platelet Aggregation Inhibitor such as, Plavix, Brilinta or Effient: Duration of therapy is minimum one year These medications are often used in combination with Aspirin in prevention of future heart attacks Never discontinue unless consult with your Property Developer STROKE (CVA) Risk factors for a stroke are: Age, cigarette smoking, diabetes, excessive alcohol consumption, family history, high blood pressure, overweight, physical inactivity, prior stroke, heart attack, diagnosis of carotid artery stenosis or other artery disease. Warning signs: Sudden numbness or weakness of the face, arm or leg; especially on one side of the body, sudden confusion, trouble speaking or understanding, sudden trouble seeing in one or both eyes, sudden trouble walking, dizziness, loss of balance or coordination, sudden severe headache with no cause. Call 911 or go to the Emergency Room. CONGESTIVE HEART FAILURE: If you have been diagnosed with Congestive Heart Failure (CHF) and your symptoms return, make an appointment with your physician Weigh yourself daily. Notify your physician if you have a weight gain of two or more pounds in one day or five or more pounds in one week. If you experience any difficulty breathing, please call 911 BLEEDING: Although the risk of bleeding is minimal, it can happen. If you have any bleeding from the site, apply firm pressure above the puncture site for 10-15 minutes. If the bleeding does not stop, continue manual pressure and call 911 Contact your physician if: You develop a fever greater than 101 degrees Fahrenheit Your site becomes reddened or has any drainage You have an increase in pain or burning at the site or if a large knot forms at the site. If you experience chest pain, shortness of breath, dizziness, or extreme tiredness, stop the activity and rest. Please notify your physicians office if you experience any of these symptoms and they are not relieved by rest please call 911! - Diet and Activity Activity: return to work once cleared by your PCP/specialist, resume usual activities as tolerated (per post PCI guidelines. ) Diet: low fat, low cholesterol, low salt diet - VTE Documentation of Mechanical Device: Graduated compression elastic hosiery
[2017-12-29] MEDS: Venlafaxine XR (24 HR) 150 MG CAP.ER.24H PO SCH (08:47)
[2017-12-29] MEDS: Aspirin 81 MG TAB.CHEW PO SCH (08:47)
== END 2017-12-29 09:30 | disposition home or self-care (01) | DRG 247 ==
LOC: 2NNU
PROVIDERS: ADMIT Internal Medicine Interventional Cardiology; ATTEND Internal Medicine

== ENCOUNTER 2018-07-08 17:59 | Observation (INO) ==
--- NOTE | 2018-07-08 18:34 | Emergency Department Note ---
Disposition Clinical Impression: Elevated troponin, Hypertensive emergency Disposition: Admitted As Inpatient Condition: Good General Adult HPI - General Chief complaint: ED Neuro Symptoms/Deficit Stated complaint: HTN Time Seen by Provider: 07/08/18 18:28 Source: patient, family Limitations: no limitations Nursing Notes Reviewed: Yes Vital Signs Reviewed: Yes - History of Present Illness HPI Narrative: 68-year-old female with significant past medical history of hypertension, hyperlipidemia and coronary artery disease presenting to the emergency department with chief complaint of numbness and tingling down her right arm and high blood pressure. Patient states she went to her primary care physician's office today and they told her to come to the emergency department due to her hypertension. Patient states last evening before she went to bed she noticed her blood pressure was significantly elevated with systolic in the 200s. She took an extra dose of her blood pressure medication and went to sleep. Before she went to sleep she noticed some numbness and tingling down the right arm. She denies any chest pain but does disclose shortness of breath at that time. She subsequently of the night without difficulty. In the morning when she woke up she was still having numbness and tingling down the right arm and shortness of breath. She followed up with primary care doctor who sent her here. Pain Scale: 0 - Related Data Home Medications Medication Instructions Recorded Confirmed Levothyroxine [Synthroid] 88 mcg PO DAILY 12/25/17 07/08/18 Metoprolol [Lopressor] 25 mg PO BID 12/25/17 07/08/18 Venlafaxine XR (24 HR) [Effexor Xr] 300 mg PO DAILY 12/25/17 07/08/18 ALPRAZolam [Xanax 1 MG Tablet] 0.5 - 1 tab PO TID PRN 12/26/17 07/08/18 Trazodone HCl 100 - 200 mg PO HS 12/26/17 07/08/18 Previous Rx's Medication Instructions Recorded Aspirin 81 mg PO DAILY #30 tab.chew 12/29/17 Atorvastatin [Lipitor] 80 mg PO HS #30 tablet 12/29/17 Clopidogrel [Plavix] 75 mg PO DAILY #30 tablet 12/29/17 Nitroglycerin [Nitrostat] 0.4 mg SL PRN PRN #30 tab.subl 12/29/17 Allergies Allergy/AdvReac Type Severity Reaction Status Date / Time No Known Allergies Allergy Verified 07/08/18 20:08 All systems ED: reviewed and negative except as stated. Constitutional: Denies: fever, chills Eyes: Reports: as per HPI ENT ED: Reports: as per HPI Cardiovascular: Denies: chest pain, palpitations Respiratory: Reports: dyspnea. Denies: wheezes, hemoptysis Gastrointestinal: Denies: abdominal pain, nausea, vomiting Genitourinary: Reports: as per HPI Musculoskeletal: Reports: as per HPI Integumentary: Reports: as per HPI Neurological: Reports: numbness, paresthesias. Denies: weakness Psychiatric: Reports: as per HPI Endocrine: Reports: as per HPI Hematological/Lymphatic: Reports: as per HPI Allergic/Immunologic: Reports: as per HPI Past Medical History - Past Medical History Attestation: Yes The following information was validated with the patient. Medical history: Reports: arthritis, hyperlipidemia, hypertension, other Psychiatric history: Reports: depression, panic disorder - Social History Smoking Status: Current every day smoker Smokeless Tobacco Status: No Alcohol use: Reports: none Drug use: Reports: none Physical Exam - General Limitations: no limitations General appearance: alert, in no apparent distress - Head Head exam: atraumatic, normocephalic, normal inspection - Eye Eye exam: Present: normal appearance. Absent: scleral icterus, conjunctival injection - ENT ENT exam: normal exam, mucous membranes moist - Neck Neck exam: Present: normal inspection, full ROM. Absent: tenderness, meningismus - Chest Chest inspection: Present: normal inspection, symmetric chest wall rise. Absent : tenderness, rash - Respiratory Respiratory exam: Present: normal lung sounds bilaterally. Absent: respiratory distress, wheezes - Cardiovascular Cardiovascular exam: Present: regular rate, normal rhythm, normal heart sounds - Abdominal Exam Abdominal exam: Present: soft, Non-Tender. Absent: distention, guarding, rebound - Extremities Exam Extremities exam: Present: normal inspection, full ROM, normal capillary refill. Absent: tenderness - Neurological Exam Neurological exam: Present: alert, oriented X3, CN II-XII intact, motor sensory deficit (Patient describes numbness and tingling down her right arm. During physical exam she states sensation in her right thigh is not equal to the left thigh but sensation of the bilateral upper extremities are equal) - Psychiatric Psychiatric exam: Present: normal affect - Skin Skin exam: Present: warm, intact Course Course Narrative: 68-year-old female presenting with numbness and tingling down her right arm and high blood pressure. Patient is alert and oriented 3 in the room with stable vital signs. Physical exam discloses sensation abnormality of the right side but otherwise benign. Patient has a nonfocal neurological exam. Patient cerebellar exam within normal limits. Patient is hypertensive in the room with systolic in the 200s. Otherwise her vital signs are stable. Due to patient's presentation we will obtain basic laboratory analysis including troponin, EKG and a CT of the head. Disposition most likely admission the pending results. Patient agrees with this plan. - Reevaluation(s) Reevaluation #1: Patient's laboratory analysis shows elevated troponin at 0.06. Patient also has elevated creatinine at 1.33 but this looks be baseline for the patient. CT of the head within normal limits. Due to patient's elevated blood pressure 10 mg of labetalol was given. Repeat blood pressure shows systolic in the 190s. Due to patient's elevated blood pressure and elevated troponin we spoke with the framing mill operator helper cone marker Dr. Peoples who agrees this is most likely demand ischemia and not an NSTEMI. Therefore we will not anticoagulate the patient. At this time will plan to admit the patient for hypertensive emergency and elevated troponin. Patient is alert and oriented 3 in the room. Remains hypertensive but otherwise vital signs stable. Patient agrees with this plan. I spoke with the hospitalist cone marker who agrees to accept the patient at this time. Vital Signs Temperature 98.2 F 07/08/18 18:18 Pulse Rate 76 07/08/18 18:18 Respiratory Rate 16 07/08/18 18:18 Blood Pressure 198/142 07/08/18 18:18 O2 Sat by Pulse Oximetry 94 07/08/18 18:18 Temperature 97.7 F 07/09/18 11:05 Pulse Rate 68 07/09/18 13:28 Respiratory Rate 18 07/09/18 13:28 Blood Pressure 130/77 07/09/18 11:05 O2 Sat by Pulse Oximetry 91 07/09/18 13:28 Oxygen Delivery Oxygen Delivery Room Air Medical Decision Making - Lab Data Result diagrams: 07/09/18 06:25 07/09/18 06:25 Lab Results 07/08/18 07/08/18 07/08/18 Range/Units 18:20 18:21 18:21 WBC 8.4 (4.3-11.1) K/mcL RBC 5.07 H (3.82-4.97) M/mcL Hgb 15.0 (11.5-15.4) g/dL Hct 45.2 H (35.3-44.9) % MCV 89.2 (83.0-100.0) fL MCH 29.6 (28.0-33.3) pg MCHC 33.2 (31.6-35.5) g/dL RDW 13.2 (11.5-14.5) % Plt Count 220 (140-400) K/mcL MPV 11.5 (9.4-12.4) fL Immature Gran % 0.4 (0-4) % Seg Neutrophils % 64.2 % Lymphocytes % 23.3 % Monocytes % 7.0 % Eosinophils % 4.2 % Basophils % 0.9 % Neutrophils # 5.4 (1.6-8.9) K/mcL Lymphocytes # 2.0 (0.6-4.6) K/mcL Monocytes # 0.6 (0.0-1.3) K/mcL Eosinophils # 0.4 (0.0-0.6) K/mcL Basophils # 0.1 (0.0-0.2) K/mcL PT 11.5 (9.4-12.1) Seconds INR 1.0 APTT 37.0 H (26.0-36.0) Seconds Sodium (136-145) mEq/L Potassium (3.5-5.1) mEq/L Chloride (98-107) mEq/L Carbon Dioxide (23-29) mEq/L BUN (8-23) mg/dL Creatinine (0.60-1.20) mg/dL Est GFR ( Amer) (> 60) Est GFR (Non-Af Amer) (> 60) BUN/Creatinine Ratio (6-26) Glucose (70-105) mg/dL POC Glucose 95 (70-99) mg/dL Calculated Osmolality (280-300) Calcium (8.6-10.3) mg/dL Troponin I (< 0.04) ng/mL 07/08/18 Range/Units 18:21 WBC (4.3-11.1) K/mcL RBC (3.82-4.97) M/mcL Hgb (11.5-15.4) g/dL Hct (35.3-44.9) % MCV (83.0-100.0) fL MCH (28.0-33.3) pg MCHC (31.6-35.5) g/dL RDW (11.5-14.5) % Plt Count (140-400) K/mcL MPV (9.4-12.4) fL Immature Gran % (0-4) % Seg Neutrophils % % Lymphocytes % % Monocytes % % Eosinophils % % Basophils % % Neutrophils # (1.6-8.9) K/mcL Lymphocytes # (0.6-4.6) K/mcL Monocytes # (0.0-1.3) K/mcL Eosinophils # (0.0-0.6) K/mcL Basophils # (0.0-0.2) K/mcL PT (9.4-12.1) Seconds INR APTT (26.0-36.0) Seconds Sodium 141 (136-145) mEq/L Potassium 3.8 (3.5-5.1) mEq/L Chloride 104 (98-107) mEq/L Carbon Dioxide 28 (23-29) mEq/L BUN 15 (8-23) mg/dL Creatinine 1.33 H (0.60-1.20) mg/dL Est GFR ( Amer) 48 L (> 60) Est GFR (Non-Af Amer) 40 L (> 60) BUN/Creatinine Ratio 11 (6-26) Glucose 105 (70-105) mg/dL POC Glucose (70-99) mg/dL Calculated Osmolality 293 (280-300) Calcium 10.0 (8.6-10.3) mg/dL Troponin I 0.06 H* (< 0.04) ng/mL - EKG Data EKG #1 EKG attestation: Yes I reviewed and interpreted this EKG. EKG results narrative: Sinus rhythm. 77 beats minute. NC interval 156, QRS 106, QTC 464. No sign of acute ST segment elevation or ischemia. Attestation Statement - Attestation Attestation: I, Rad Aguero, examined this patient and my medical decision-making was reviewed with the CARD DOFFER/PA/Advanced Practice Nurse/Resident Physician. I agree with the documented findings, disposition and treatment plan as described except to the extent set forth below. 68-year-old female brought to the emergency department for concerns of elevated blood pressure associated with numbness and tingling to the right-sided face and right upper extremity. During evaluation emergency department the patient has mild paresthesias to the right upper thigh but otherwise normal exam. Blood pressure is significantly elevated greater than 200 and in the emergency department. She states that it has been elevated for more than 24 hours, she first noticed it that it was elevated last night and took the next her dose for blood pressure medication. She went to see her PCP today who recommended she be evaluated in the emergency department. CT of the head was negative for acute fracture or intracranial hemorrhage. She was given labetalol 10 mg which improved her blood pressure. She will be admitted to the hospitalist for further care and evaluation of her elevated blood pressure and her seizures for possible hypertensive urgency/emergency
[2018-07-08 18:57] LABS: Basophils # 0.1 K/mcL (0.0-0.2); Basophils % 0.9 %; Eosinophils # 0.4 K/mcL (0.0-0.6); Eosinophils % 4.2 %; Hematocrit 45.2 % (35.3-44.9); Immature Granulocytes % 0.4 % (0-4); Lymphocytes % 23.3 %; Mean Corpuscular HGB Conc 33.2 g/dL (31.6-35.5); Mean Corpuscular Hemoglobin 29.6 pg (28.0-33.3); Mean Corpuscular Volume 89.2 fL (83.0-100.0); Mean Platelet Volume 11.5 fL (9.4-12.4); Monocytes # 0.6 K/mcL (0.0-1.3); Neutrophils # 5.4 K/mcL (1.6-8.9); Platelet Count 220 K/mcL (140-400); Red Blood Count 5.07 M/mcL (3.82-4.97); Red Cell Distribution Width 13.2 % (11.5-14.5); Segmented Neutrophils % 64.2 %
[2018-07-08 19:03] LABS: Prothrombin Time 11.5 Seconds (9.4-12.1)
[2018-07-08 19:16] LABS: Potassium 3.8 mEq/L (3.5-5.1)
[2018-07-08] MEDS ORDERED: *HR* Labetalol 20 MG/4 ML SYRINGE IVP ONE (19:16)
[2018-07-08 19:17] LABS: Troponin I 0.06 ng/mL (< 0.04)
[2018-07-08] MEDS ORDERED: ALPRAZolam 0.5 MG TABLET PO ONE (23:11)
[2018-07-08] MEDS: niCARdipine 40 MG/200 ML MLS IVC SCH (23:29)
[2018-07-09] MEDS ORDERED: Naloxone 0.4 MG/ML INJ IVP PRN (02:59)
[2018-07-09] MEDS ORDERED: Nitroglycerin 0.4 MG TAB.SUBL SL PRN (03:06)
[2018-07-09] MEDS: 0.9 % Sodium Chloride 1,000 ML IVC SCH ×2 (04:09→13:36)
--- NOTE | 2018-07-09 04:18 | Internal Med History&Physical ---
Date of Encounter: 07/09/18 Time of Encounter: 02:20 Internal Medicine - H&P: HPI Chief complaint: uncontrolled HTN, right arm numbness Admitted From: Emergency Dept Plans for Post Hospital Care: Home History of present illness: Ms. Law is a 68 year old female who presents to the ER today with complaints of numbness and paresthesias to her right arm and elevated blood pressure. She went to her PCP today who referred her to the ER due to uncontrolled blood pressure with a systolic in excess of 200. Workup in the ER revealed patient to have hypertensive emergency with positive troponins, headache, and right arm numbness and tingling. She was given a dose of labetalol and subsequently admitted to hospitalist service for further workup and care. Cardiology was consulted by the ER and did not recommend heparin drip due to the uncontrolled hypertension. Upon arrival to the floor, I was notified by nursing staff. Blood pressure again climbed above 200 systolic, and I ordered nicardipine drip (goal SBP 160- 180) until I could see the patient personally. Cardene was started and blood pressure was eventually controlled. Her nicardipine drip was weaned off as her blood pressure improved to less than 160 systolic. I therefore stopped the Cardene drip temporarily and will leave it off unless her blood pressure climbs in excess of 160 systolic. When I finally had a chance to see patient around 2 AM, she was sleeping and denied any complaints. She is easily arousable. She denies any chest pain, shortness breath, palpitations, nausea, or diaphoresis. Her numbness and tingling resolved completely as her blood pressure improved. Patient informs me that she had an LA with PCI and stent earlier this year. She has taken her aspirin and Plavix religiously. Her blood pressure at home has been suboptimally controlled, however. Despite her coronary artery disease , she continues to smoke on a daily basis. She denies any fevers, cough, congestion, or productive sputum. Past Med Surg Social Fam HX - Past Medical History Attestation: Yes The following information was validated with the patient. Source: patient, old records reviewed Medical history: arthritis, hyperlipidemia, hypertension, myocardial infarction Additional medical history: heart stents x3 November 2017 Psychiatric history: depression, panic disorder - Past Surgical History Surgical History: angioplasty/stent Additional surgical history: right ankle orif, hyster - Social History Smoking Status: Current every day smoker Packs per day: 1 Smokeless Tobacco Status: No Alcohol use: none Drug use: none Current living situation: Home Activity Level: Independent ambulation Recent Out of Country Travel Within the Last 8 Weeks: No - Family History Father Living Status: Hx Family Cardiac Disorders: Yes Mother Living Status: Hx Family Cardiac Disorders: Yes Sister Hx Family Cardiac Disorders: Yes Hx Family Endocrine Disorder: Yes Internal Medicine - H&P: Meds Levothyroxine [Synthroid] 88 mcg PO DAILY 12/25/17 [History] Metoprolol [Lopressor] 25 mg PO BID 12/25/17 [History] Venlafaxine XR (24 HR) [Effexor Xr] 300 mg PO DAILY 12/25/17 [History] ALPRAZolam [Xanax 1 MG Tablet] 0.5 - 1 tab PO TID PRN 12/26/17 [History] Trazodone HCl 100 - 200 mg PO HS 12/26/17 [History] Aspirin 81 mg PO DAILY #30 tab.chew 12/29/17 [Rx] Atorvastatin [Lipitor] 80 mg PO HS #30 tablet 12/29/17 [Rx] Clopidogrel [Plavix] 75 mg PO DAILY #30 tablet 12/29/17 [Rx] Nitroglycerin [Nitrostat] 0.4 mg SL PRN PRN #30 tab.subl 12/29/17 [Rx] 3 Allergy/AdvReac Type Severity Reaction Status Date / Time No Known Allergies Allergy Verified 07/08/18 20:08 - Constitutional Constitutional: no chills, no fever(s), no night sweats - EENT Eyes: no blurry vision, no change in vision, no seeing flashes Ears: no ear pain, no tinnitus Nose, mouth and throat: no nasal congestion, no sore throat - Cardiovascular Cardiovascular ROS IM: diaphoresis, dyspnea, lightheadedness, palpitations, no chest pain - Respiratory Respiratory: no cough, no hemoptysis, no chest congestion, no excessive phlegm production - Gastrointestinal Gastrointestinal: nausea, no abdominal pain, no diarrhea, no hematemesis, no hematochezia, no melena, no vomiting - Genitourinary Genitourinary: no dysuria, no flank pain, no hematuria - Musculoskeletal Musculoskeletal ROS IM: no arthralgias, no back pain - Integumentary Integumentary IM: no rash, no jaundice - Neurological Neurological ROS: dizziness, headache(s), numbness (right arm -- resolved), paresthesias (right arm-- resolved), no focal weakness, no frequent falls - Psychiatric Psychiatric: no anxiety, no depression - Endocrine Endocrine IM: no polydipsia, no polyuria - Hematologic/Lymphatic Hematologic/Lymphatic: no easy bruising, no lymphadenopathy - Allergic/Immunologic Allergic/Immunologic: no wheezing, no GI upset with certain foods - Constitutional Vitals: Temp Pulse Resp BP Pulse Ox 98.0 F 72 18 141/78 92 07/09/18 03:51 07/09/18 03:51 07/09/18 03:51 07/09/18 03:51 07/09/18 03:51 General appearance: Present: cooperative, A&O X 3, pleasant, no acute distress, answers questions appropriately Exam: sleeping, arousable, asymptomatic now; current BP 159/84 - Head Head exam: Present: normal inspection - Eye Eye exam: Present: EOMI, normal appearance, PERRL. Absent: scleral icterus Pupils: Present: normal accommodation - ENT ENT exam: Present: mucous membranes dry, normal exam, normal oropharynx - Neck Neck exam general surgery: Present: full ROM, supple. Absent: tenderness, nuchal rigidity, thyromegaly - Expanded Neck Exam Neck exam: Absent: carotid bruit - Respiratory Respiratory exam: Present: CTAB. Absent: chest wall tenderness, rales, respiratory distress, rhonchi, wheezes - Cardiovascular Cardiovascular exam: Present: RRR, +S1, +S2. Absent: diastolic murmur, systolic murmur - GI/Abdominal GI/Abdominal exam: Present: normal bowel sounds, soft. Absent: hepatomegaly, mass, splenomegaly, tenderness - Extremities Exam Extremities exam: Present: full ROM, normal capillary refill, warm, radial pulses palpable and symmetrical. Absent: calf tenderness, pedal edema, tenderness - Back Exam Back exam: Absent: CVA tenderness (L), CVA tenderness (R) - Neurological Exam Neurological exam: Present: alert, CN II-XII intact, oriented X3, strengths equal and symetr throughout - Psychiatric Psychiatric exam: Present: normal affect, normal mood - Skin Skin exam: Present: dry, warm. Absent: rash Internal Med - H&P Results - Labs CBC & Chem 7: 07/08/18 18:21 07/08/18 18:21 Labs: Cardiac Enzymes 07/09/18 Range/Units 00:43 Troponin I 0.06 H* (< 0.04) ng/mL - EKG Data -: EKG Interpreted by Myself - EKG Data Prior EKG available for review: no EKG comments: 07/09/18 04:25 NSR; subtle lateral ischemia - Assessment and plan (1) Hypertensive emergency Current Visit: Yes Status: Acute Assessment and plan: 1. Nicardipene drip initiated to maintain SBP 160-180. 2. Resume home meds and adjust as necessary. 3. Continuous telemetry monitoring and BP monitoring on 2N step down unit. 4. 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 (2) Paresthesia of right arm Current Visit: Yes Status: Resolved Assessment and plan: 1. Resolved. 2. Patient has no focal deficits and symptoms resolved with treatment of BP. 3. Will order MRI brain to assess for cerebral ischemia. 4. BP management as above. 5. Continue ASA, Plavix, STATIN. (3) Elevated troponin Current Visit: Yes Status: Acute Assessment and plan: 1. Likely due to hypertensive emergency. 2. Will trend troponins, EKG's, and consult cardiology. 3. Will order ECHO to assess LV function. 4. Patient remains chest pain free. (4) Tobacco abuse Current Visit: Yes Status: Chronic Assessment and plan: 1. Smoking cessation well advised. (5) DVT prophylaxis Current Visit: Yes Status: Acute Assessment and plan: 1. Heparin SQ.
[2018-07-09] MEDS: *HR* Heparin 5,000 UNIT/ML VIAL SQ SCH ×2 (06:17→20:06)
[2018-07-09 06:58] LABS: Basophils # 0.1 K/mcL (0.0-0.2); Basophils % 0.7 %; Eosinophils # 0.4 K/mcL (0.0-0.6); Eosinophils % 4.1 %; Hematocrit 44.6 % (35.3-44.9); Immature Granulocytes % 0.2 % (0-4); Lymphocytes # 1.9 K/mcL (0.6-4.6); Lymphocytes % 21.3 %; Mean Corpuscular HGB Conc 33.6 g/dL (31.6-35.5); Mean Corpuscular Hemoglobin 29.8 pg (28.0-33.3); Mean Corpuscular Volume 88.5 fL (83.0-100.0); Mean Platelet Volume 11.1 fL (9.4-12.4); Monocytes # 0.8 K/mcL (0.0-1.3); Monocytes % 8.3 %; Neutrophils # 5.9 K/mcL (1.6-8.9); Platelet Count 209 K/mcL (140-400); Red Blood Count 5.04 M/mcL (3.82-4.97); Red Cell Distribution Width 13.2 % (11.5-14.5); Segmented Neutrophils % 65.4 %
[2018-07-09 07:04] LABS: INR 1.1; Prothrombin Time 12.5 Seconds (9.4-12.1)
[2018-07-09 07:05] LABS: Activated Partial Thrombo Time 36.5 Seconds (26.0-36.0)
[2018-07-09 07:20] LABS: Albumin 4.3 g/dL (3.5-5.7); Albumin/Globulin Ratio 1.4 (1.1-2.2); Bilirubin,Total 0.7 mg/dL (0.3-1.0); Calcium 9.7 mg/dL (8.6-10.3); Chol/HDL Ratio 4.8 (0-4.9); Potassium 3.4 mEq/L (3.5-5.1); Total Protein 7.3 g/dL (6.4-8.9)
[2018-07-09] MEDS: niCARdipine 40 MG/200 ML MLS IVC SCH ×2 (08:27→13:41)
[2018-07-09] MEDS: Aspirin 81 MG TAB.CHEW PO SCH (08:30)
--- NOTE | 2018-07-09 10:25 | Cardiology Consult Note ---
<Angelo Coleman Phillip - Last Filed: 07/09/18 11:12> Date of Encounter: 07/09/18 Time of Encounter: 10:21 Assessment and Plan (1) Elevated troponin Current Visit: Yes Status: Acute Troponin 0.06 x 2, 0.07 in setting of hypertensive urgency with BP as high as 228/129--demand ischemia/type II, nondiagnostic for ACS. Pt denies chest pain. No ischemic ECG changes. Hx CAD with PCI to mLAD 12/2017. TTE 11/2017 EF 50%, mild cLVH, mild segmental LV dysfunction, mild LVDD. Recheck TTE to evaluate structure and function. (2) CAD (coronary artery disease) Current Visit: Yes Status: Acute Known CAD s/p PCI. ASA, Plavix, Statin, BB. Reports compliance with DAPT, denies any missed doses since PCI 12/2017. Qualifiers: Coronary Disease-Associated Artery/Lesion type: [place] artery [place] vs. transplanted heart: [place] heart Associated angina: without angina Qualified Code(s): I25.10 - Atherosclerotic heart disease of [place] coronary artery without angina pectoris (3) Hypertensive emergency Current Visit: Yes Status: Acute BP as high as 228/129 on presentation. Home antihypertensive Lopressor 25mg BID. Reports she does not regularly check BP at home, but when she does it is 150s/90s. On Cardene gtt at 5mg/hr. Wean off as tolerated. Will increase Lopressor to 50mg BID and add Lisinopril 10mg daily. Adjust as necessary for optimal BP control. (4) Tobacco abuse Current Visit: Yes Status: Chronic Smoking cessation counseling given. Discussion w patient/family: The assessment and plan as outlined above was discussed with the patient and/or family members who expressed understanding and agreement. All questions were answered. Thank you for involving us in the care of your patient. Please call with any questions. I will discuss all the above with Dr. Villasenor and make changes as necessary. History of Present Illness Consult date: 07/09/18 Requesting physician: Dave Robins Consult reason: accelerated htn, elevated troponin Chief complaint: right arm numbness History of present illness: Ms. Law is a 68 year old female with PMH of [place], CAD s/p PCI as recent as 2017 with EDWAR mLAD, HTN, HLD, tobacco abuse, depression, GERD who presents to the ER yesterday with complaints of numbness and paresthesias to her right arm and elevated blood pressure. She went to her psychiatrist, who referred her to the ER due to uncontrolled blood pressure with a systolic in excess of 200. She was given a dose of labetalol and subsequently admitted to hospitalist service for further workup and care. She was started on a nicardipine drip (goal SBP 160 -180), was weaned off and now is back on at 5mg/hr. BP at bedside 150s/90s. Per pt, she has been compliant with DAPT (ASA and Plavix). Her only antihypertensive at home is Lopressor 25mg BID. States she does not check her BP regularly at home, but when she does it is 150s/90s. Right arm numbness has resolved with BP improvement. She denies chest pain or dyspnea. Troponins 0.06 x 2, 0.07. Cardiology consulted for further recs. Prior CV testing: [facility] 12/28/17: Severe 1 vessel CAD. Successful EDWAR mLAD. Stent placed from prior procedure in LCx patent. TTE 11/2017: EF 50%, mild cLVH, mild segmental LV dysfunction, mild LVDD, no phtn. Past Med Surg Social Fam HX - Past Medical History Medical history: arthritis, hyperlipidemia, hypertension, myocardial infarction Additional medical history: heart stents x3 November 2017 Psychiatric history: depression, panic disorder - Past Surgical History Surgical History: angioplasty/stent Additional surgical history: right ankle orif, hyster - Social History Smoking Status: Current every day smoker Packs per day: 1 Smokeless Tobacco Status: No Alcohol use: none Drug use: none - Family History Father Living Status: Hx Family Cardiac Disorders: Yes Mother Living Status: Hx Family Cardiac Disorders: Yes Sister Hx Family Cardiac Disorders: Yes Hx Family Endocrine Disorder: Yes Medications and Allergies Levothyroxine [Synthroid] 88 mcg PO DAILY 12/25/17 [History] Metoprolol [Lopressor] 25 mg PO BID 12/25/17 [History] Venlafaxine XR (24 HR) [Effexor Xr] 300 mg PO DAILY 12/25/17 [History] ALPRAZolam [Xanax 1 MG Tablet] 0.5 - 1 tab PO TID PRN 12/26/17 [History] Trazodone HCl 100 - 200 mg PO HS 12/26/17 [History] Aspirin 81 mg PO DAILY #30 tab.chew 12/29/17 [Rx] Atorvastatin [Lipitor] 80 mg PO HS #30 tablet 12/29/17 [Rx] Clopidogrel [Plavix] 75 mg PO DAILY #30 tablet 12/29/17 [Rx] Nitroglycerin [Nitrostat] 0.4 mg SL PRN PRN #30 tab.subl 12/29/17 [Rx] 3 Allergy/AdvReac Type Severity Reaction Status Date / Time No Known Allergies Allergy Verified 07/08/18 20:08 All Systems Review: The remainder of the systems were reviewed and are negative - Cardiovascular Cardiovascular: as per HPI, radiating jaw, neck or arm pain - Neurological Neurological: numbness Physical Examination Vital Signs, Last 4 Hours Temp Pulse Resp BP Pulse Ox 07/09/18 08:38 79 18 157/90 95 07/09/18 07:58 97.8 F 73 18 192/125 95 Vital Signs Temp Pulse Resp BP Pulse Ox 07/09/18 08:38 79 18 157/90 95 07/09/18 07:58 97.8 F 73 18 192/125 95 07/09/18 03:51 98.0 F 72 18 141/78 92 07/09/18 01:00 73 154/86 07/09/18 00:45 79 152/84 07/09/18 00:30 75 152/85 07/09/18 00:25 76 154/84 07/09/18 00:20 76 150/88 07/09/18 00:15 78 154/84 89 07/09/18 00:00 78 151/89 90 07/08/18 23:45 79 175/97 91 07/08/18 23:40 76 176/100 93 07/08/18 23:35 76 171/99 97 07/08/18 23:30 75 191/109 95 07/08/18 22:57 97.9 F 76 18 206/117 97 07/08/18 22:24 76 15 189/114 97 07/08/18 20:50 71 22 178/98 96 07/08/18 20:19 73 20 182/114 98 07/08/18 18:27 78 18 228/129 96 07/08/18 18:20 98.2 F 76 16 198/142 94 07/08/18 18:18 98.2 F 76 16 198/142 94 Intake and Output 07/08/18 07/09/18 07/09/18 23:59 07:59 15:59 Intake Total 46 / 46 154 / 154 Output Total 500 / 500 400 / 400 Balance -500 / -500 -354 / -354 154 / 154 Intake: IV Fluids 46 / 46 154 / 154 Cardene Premix 40mg/200ml 40 mg 46 / 46 154 / 154 In 200 ml @ 5 MG/HR 25 mls/hr IVC .Q8H [facility] Rx#:[id number] Output: Urine 500 / 500 400 / 400 Other: Weight 88.3 kg 88.3 kg 88.3 kg Blood Glucose* 95 Patient Weight 07/09/18 23:59 Weight 88.3 kg General: Conversant, No Apparent Distress HEENT: Atraumatic, Normocephaly, Mucus Membranes Moist Neck: No JVD, Normal carotid pulses Cardiac: Reg Rate and Rhythm, Normal S1 and S2, No Murmur Lungs: Normal Breath Sounds, No Wheeze, Rales, Rhonchi Neuro: Alert and responsive, No focal deficits noted Abdomen: Soft, Non-Tender Skin: No rashes noted on visualized skin Musculoskeletal: No Chest Wall Tenderness Extremities: No Clubbing, No Cyanosis, No Edema, Normal Pulses Results 07/09/18 06:25 07/09/18 06:25 Lab Results 07/09/18 07/09/18 07/09/18 00:43 06:25 06:25 WBC 9.0 Hgb 15.0 Hct 44.6 Plt Count 209 INR APTT Sodium Potassium Chloride Carbon Dioxide BUN Creatinine Glucose Calcium Magnesium Total Bilirubin AST ALT Alkaline Phosphatase Troponin I 0.06 H* 0.07 H* TSH 07/09/18 07/09/18 07/09/18 06:25 06:25 06:25 WBC Hgb Hct Plt Count INR 1.1 APTT 36.5 H Sodium 139 Potassium 3.4 L Chloride 104 Carbon Dioxide 25 BUN 13 Creatinine 1.13 Glucose 99 Calcium 9.7 Magnesium 2.0 Total Bilirubin 0.7 AST 15 ALT 11 Alkaline Phosphatase 117 H Troponin I TSH 1.455 Short CBC 07/09/18 07/08/18 Range/Units 06:25 18:21 WBC 9.0 8.4 (4.3-11.1) K/mcL Hgb 15.0 15.0 (11.5-15.4) g/dL Hct 44.6 45.2 H (35.3-44.9) % Plt Count 209 220 (140-400) K/mcL Neutrophils # 5.9 5.4 (1.6-8.9) K/mcL BMP 07/09/18 07/08/18 Range/Units 06:25 18:21 Sodium 139 141 (136-145) mEq/L Potassium 3.4 L 3.8 (3.5-5.1) mEq/L Chloride 104 104 (98-107) mEq/L Carbon Dioxide 25 28 (23-29) mEq/L BUN 13 15 (8-23) mg/dL Creatinine 1.13 1.33 H (0.60-1.20) mg/dL Glucose 99 105 (70-105) mg/dL Calcium 9.7 10.0 (8.6-10.3) mg/dL Cardiac Enzymes 07/09/18 07/09/18 07/08/18 Range/Units 06:25 00:43 18:21 Troponin I 0.07 H* 0.06 H* 0.06 H* (< 0.04) ng/mL Liver Function 07/09/18 Range/Units 06:25 Total Bilirubin 0.7 (0.3-1.0) mg/dL AST 15 (13-39) Units/L ALT 11 (7-52) Units/L Alkaline Phosphatase 117 H (34-104) Units/L Albumin 4.3 (3.5-5.7) g/dL Impressions Head CT 07/08/18 18:28 IMPRESSION: No acute intracranial abnormality. D/ / Queta Tamayo Cha, MD / Queta Tamayo Cha, MD Interpreting Provider: Queta Tamayo Cha, MD Chest X-Ray 07/09/18 04:27 IMPRESSION: No acute cardiopulmonary disease. D/ / 07/09/2018 07:20:16 Mickey Cuellar MD / [facility] Interpreting Provider: Mickey Cuellar MD Active Medications Aspirin (Aspirin) 81 mg PO DAILY [facility] Stop: 03/13/19 09:01 Last Admin: 07/09/18 08:30 Dose: 81 mg Atorvastatin Calcium (Lipitor) 80 mg PO HS [facility] Stop: 01/08/19 21:01 Clopidogrel Bisulfate (Plavix) 75 mg PO DAILY [facility] Stop: 01/08/19 09:01 Last Admin: 07/09/18 08:30 Dose: 75 mg Heparin Sodium (Porcine) (Heparin) 5,000 unit SQ Q12HCO [facility] Stop: 01/08/19 06:01 Last Admin: 07/09/18 06:17 Dose: 5,000 unit Nicardipine HCl (Cardene Premix 40mg/200ml) 40 mg in 200 mls @ 25 mls/hr IVC .Q8H [facility]; 5 MG/HR PRN Reason: Protocol Stop: 01/07/19 23:16 Last Admin: 07/09/18 08:27 Dose: 5 mg/hr, 25 mls/hr Sodium Chloride (0.9 % Sodium Chloride) 1,000 mls @ 100 mls/hr IVC .Q10H [facility] Stop: 07/09/18 22:59 Last Admin: 07/09/18 04:09 Dose: 100 mls/hr Levothyroxine Sodium (Synthroid) 88 mcg PO 0630 [facility] Stop: 01/08/19 06:31 Last Admin: 07/09/18 06:17 Dose: 88 mcg Lisinopril (Zestril) 10 mg PO DAILY [facility] PRN Reason: Protocol Stop: 01/08/19 10:31 Metoprolol Tartrate (Lopressor) 50 mg PO BID [facility] Stop: 01/08/19 21:01 Naloxone HCl (Narcan) 0.4 mg IVP Q2MIN PRN PRN Reason: SEE COMMENTS Stop: 01/08/19 03:00 Nitroglycerin (Nitroglycerin) 0.4 mg SL AD PRN PRN Reason: CHEST PAIN Stop: 01/08/19 03:07 - Imaging and Cardiology Echo: report reviewed Cardiac cath: report reviewed - EKG Interpretation EKG results cardiology: personally reviewed (SR with PVC), other (12 hr tele AVG HR 71, SR, no significant pauses or arrhythmias noted.) Consult Discharge Plan - Plan Referrals: Roseline Salcido, DERICK [Primary Care Provider] - 07/16/18 10:30 am () Salbador Peoples, [Partnered Physician] - (Office will call patient at home with follow up appointment) <Juliet Villasenor - Last Filed: 07/09/18 18:19> Date of Encounter: 07/09/18 - Attending Attestation Patient was seen and evaluated independently by me. Findings, assessment and plan were discussed at length with patient, questions answered. Agree with nurse practitioner's documentation. Addition as follows, 68 yo CF ho CAD LAD EDWAR 12/2017, EF 50%, HTN. P/w fatigue. IMP hypertensive crisis. minimal tro elevation w/o ischemic ECG changes. A: Hypertensive crisis, demand ischemia, CAD w/o active ishchemia P: med adjustment for HTN c/w DAPT, statin, BB. Juliet Villasenor MD, PhD Assessment and Plan Discussion w patient/family: The assessment and plan as outlined above was discussed with the patient and/or family members who expressed understanding and agreement. All questions were answered. Thank you for involving us in the care of your patient. Please call with any questions. History of Present Illness History of present illness: Ms. Law is a 68 year old female All Systems Review: The remainder of the systems were reviewed and are negative Physical Examination Vital Signs, Last 4 Hours Temp Pulse Resp BP Pulse Ox 07/09/18 15:43 97.6 F 67 16 129/76 94 Results 07/09/18 06:25 07/09/18 06:25 Lab Results 07/09/18 07/09/18 07/09/18 00:43 06:25 06:25 WBC 9.0 Hgb 15.0 Hct 44.6 Plt Count 209 INR APTT Sodium Potassium Chloride Carbon Dioxide BUN Creatinine Glucose Calcium Magnesium Total Bilirubin AST ALT Alkaline Phosphatase Troponin I 0.06 H* 0.07 H* TSH 07/09/18 07/09/18 07/09/18 06:25 06:25 06:25 WBC Hgb Hct Plt Count INR 1.1 APTT 36.5 H Sodium 139 Potassium 3.4 L Chloride 104 Carbon Dioxide 25 BUN 13 Creatinine 1.13 Glucose 99 Calcium 9.7 Magnesium 2.0 Total Bilirubin 0.7 AST 15 ALT 11 Alkaline Phosphatase 117 H Troponin I TSH 1.455 07/09/18 12:40 WBC Hgb Hct Plt Count INR APTT Sodium Potassium Chloride Carbon Dioxide BUN Creatinine Glucose Calcium Magnesium Total Bilirubin AST ALT Alkaline Phosphatase Troponin I 0.07 H* TSH
[2018-07-09] MEDS: ALPRAZolam 0.5 MG TABLET PO PRN (13:32)
[2018-07-09] MEDS: Venlafaxine XR (24 HR) 150 MG CAP.ER.24H PO SCH (13:36)
--- NOTE | 2018-07-09 19:16 | Event Note ---
Date of Encounter: 07/09/18 Time of Encounter: 11:00 Patient evaluated by nocturnalist earlier this morning and also by myself. Patient is a 68-year-old female who presents with hypertension urgency currently on nicardipine drip. Will wean as tolerates. Cardiology also consulted for elevated troponins.
[2018-07-09] MEDS ORDERED: ALPRAZolam 0.5 MG TABLET PO SCH (21:00)
[2018-07-09] MEDS ORDERED: traZODone 50 MG TABLET PO SCH (21:00)
[2018-07-10] MEDS: *HR* Heparin 5,000 UNIT/ML VIAL SQ SCH (05:45)
[2018-07-10] MEDS: niCARdipine 40 MG/200 ML MLS IVC SCH ×2 (07:38→07:46)
[2018-07-10] MEDS: Aspirin 81 MG TAB.CHEW PO SCH (07:53)
[2018-07-10] MEDS: Venlafaxine XR (24 HR) 150 MG CAP.ER.24H PO SCH (07:53)
[2018-07-10] MEDS ORDERED: Gadolinium Contrast Agent (WT Based) IV PRN (08:34)
[2018-07-10 09:17] LABS: Basophils % 0.5 %; Eosinophils # 0.3 K/mcL (0.0-0.6); Eosinophils % 4.4 %; Immature Granulocytes % 0.4 % (0-4); Lymphocytes # 1.8 K/mcL (0.6-4.6); Lymphocytes % 23.7 %; Mean Corpuscular HGB Conc 32.9 g/dL (31.6-35.5); Mean Corpuscular Hemoglobin 29.2 pg (28.0-33.3); Mean Corpuscular Volume 88.7 fL (83.0-100.0); Mean Platelet Volume 11.5 fL (9.4-12.4); Monocytes # 0.6 K/mcL (0.0-1.3); Monocytes % 7.7 %; Neutrophils # 4.9 K/mcL (1.6-8.9); Platelet Count 187 K/mcL (140-400); Red Blood Count 4.62 M/mcL (3.82-4.97); Red Cell Distribution Width 13.3 % (11.5-14.5); Segmented Neutrophils % 63.3 %
[2018-07-10 09:20] LABS: Calcium 9.1 mg/dL (8.6-10.3); Potassium 3.3 mEq/L (3.5-5.1)
[2018-07-10 09:28] LABS: Hemoglobin 13.5 g/dL (11.5-15.4)
--- NOTE | 2018-07-10 09:34 | Cardiology Progress Note ---
Date of Encounter: 07/10/18 Time of Encounter: 09:31 Assessment and Plan (1) Elevated troponin Current Visit: Yes Status: Acute Troponin 0.06 x 2, 0.07 in setting of hypertensive urgency with BP as high as 228/129--demand ischemia/type II, nondiagnostic for ACS. Pt denies chest pain. No ischemic ECG changes. Hx CAD with PCI to mLAD 12/2017. TTE resulted--EF preserved 55-60%, mild cLVH, mild LVDD, no significant valvular dysfunction. No further cardiac testing warranted inpt. Cardiology signing off. Reconsult PRN. Will coordinate outpt follow-up in 3-4 weeks. (2) Hypertensive emergency Current Visit: Yes Status: Acute BP as high as 228/129 on presentation, has been weaned off Cardene gtt and most recent BP 146/84. Increased Lopressor to 50mg BID and added Lisinopril 10mg daily yesterday. Continue these medications and adjust as necessary for optimal BP control. K 3.3 today--replace. Creatinine 1.28 today--within baseline range. If continues to worsen, can consider switching ACEi to a different antihypertensive. (3) CAD (coronary artery disease) Current Visit: Yes Status: Acute Known CAD s/p PCI. ASA, Plavix, Statin, BB. Reports compliance with DAPT, denies any missed doses since PCI 12/2017. Qualifiers: Coronary Disease-Associated Artery/Lesion type: [place] artery [place] vs. transplanted heart: [place] heart Associated angina: without angina Qualified Code(s): I25.10 - Atherosclerotic heart disease of [place] coronary artery without angina pectoris (4) Tobacco abuse Current Visit: Yes Status: Chronic Smoking cessation counseling given. Discussion w patient/family: The assessment and plan as outlined above was discussed with the patient and/or family members who expressed understanding and agreement. All questions were answered. Thank you for involving us in the care of your patient. Please call with any questions. I will discuss all the above with Dr. Villasenor and make changes as necessary. Subjective Principal diagnosis: Hypertensive urgency, elevated troponin Interval history: Pt denies acute complaints this AM--denies chest pain or dyspnea. BP improved and off Cardene gtt. Objective Vital Signs, Last 4 Hours Temp Pulse Resp BP Pulse Ox 07/10/18 08:13 65 07/10/18 08:03 65 18 146/84 07/10/18 07:21 97.6 F 67 18 149/91 96 Vital Signs Temp Pulse Resp BP Pulse Ox 07/10/18 08:13 65 07/10/18 08:03 65 18 146/84 07/10/18 07:21 97.6 F 67 18 149/91 96 07/10/18 04:25 98.2 F 67 19 147/93 96 07/09/18 23:16 98.0 F 77 18 151/87 95 07/09/18 21:04 74 07/09/18 19:48 98.0 F 79 18 151/78 93 07/09/18 16:28 80 07/09/18 15:43 97.6 F 67 16 129/76 94 07/09/18 13:28 68 18 91 07/09/18 11:05 97.7 F 65 18 130/77 92 Intake and Output 07/09/18 07/10/18 07/10/18 23:59 07:59 15:59 Intake Total 240 / 240 60 / 60 Output Total 300 / 300 Balance 240 / 240 -300 / -300 60 / 60 Intake: Oral 240 / 240 60 / 60 Output: Urine 300 / 300 Other: Meal Dinner Percent of Meal Consumed 100% # Voids 1 Weight 89.6 kg Patient Weight 07/10/18 23:59 Weight 89.6 kg General: Conversant, No Apparent Distress HEENT: Atraumatic, Normocephaly, Mucus Membranes Moist Neck: No JVD, Normal carotid pulses Cardiac: Reg Rate and Rhythm, Normal S1 and S2, No Murmur Lungs: Normal Breath Sounds, No Wheeze, Rales, Rhonchi Neuro: Alert and responsive, No focal deficits noted Abdomen: Soft, Non-Tender Skin: No rashes noted on visualized skin Musculoskeletal: No Chest Wall Tenderness Extremities: No Clubbing, No Cyanosis, No Edema, Normal Pulses Results 07/10/18 08:35 07/10/18 08:35 Lab Results 07/09/18 07/10/18 07/10/18 12:40 08:35 08:35 WBC 7.7 Hgb 13.5 D Hct 41.0 Plt Count 187 Sodium 137 Potassium 3.3 L Chloride 106 Carbon Dioxide 25 BUN 19 Creatinine 1.28 H Glucose 117 H Calcium 9.1 Troponin I 0.07 H* Short CBC 07/10/18 Range/Units 08:35 WBC 7.7 (4.3-11.1) K/mcL Hgb 13.5 D (11.5-15.4) g/dL Hct 41.0 (35.3-44.9) % Plt Count 187 (140-400) K/mcL Neutrophils # 4.9 (1.6-8.9) K/mcL BMP 07/10/18 Range/Units 08:35 Sodium 137 (136-145) mEq/L Potassium 3.3 L (3.5-5.1) mEq/L Chloride 106 (98-107) mEq/L Carbon Dioxide 25 (23-29) mEq/L BUN 19 (8-23) mg/dL Creatinine 1.28 H (0.60-1.20) mg/dL Glucose 117 H (70-105) mg/dL Calcium 9.1 (8.6-10.3) mg/dL Cardiac Enzymes 07/09/18 Range/Units 12:40 Troponin I 0.07 H* (< 0.04) ng/mL Impressions Echocardiogram 07/09/18 03:05 Impressions: LVEF 55-60%. Normal LV chamber size and overall function. Mild concentric left ventricular hypertrophy. Mild left ventricular diastolic dysfunction. Normal right ventricular structure and function. Unable to estimate RVSP due to lack of adequate TR jet. No significant valvular dysfunction. Left Ventricular Wall Motion: Rest Echo Findings The mid inferior lateral and basal inferior lateral fenton were hypokinetic. All other wall segments showed normal motion. Findings: Study Quality * Technically adequate exam. ECG Findings * Normal sinus rhythm. Left Ventricle * LVEF 55-60%. * Normal LV chamber size and overall function. * Mild concentric left ventricular hypertrophy. * Mild left ventricular diastolic dysfunction. Right Ventricle * Normal right ventricular structure and function. Left Atrium * Mild to moderately dilated left atrium. Right Atrium * Mildly dilated right atrium. Aortic Valve * Trileaflet aortic valve. * Mildly calcified aortic valve leaflets, especially the noncoronary cusp. * No aortic regurgitation. * No aortic stenosis. Mitral Valve * Mild mitral annular calcification. * No mitral regurgitation. * No mitral stenosis. Tricuspid Valve * Normal tricuspid valve structure and function. * No tricuspid regurgitation. * Unable to estimate RVSP due to lack of adequate TR jet. Pulmonic Valve * Normal pulmonic valve structure and function. * No pulmonic regurgitation. Aorta * Normally sized aortic root. Pericardium * The pericardium appears normal. IVC * Normal IVC dimensions and inspiratory collapse. Pulmonary Artery * Normal visualized portions of the main pulmonary artery. Brain MRI 07/09/18 04:21 IMPRESSION: Focal rounded lesion in the posterior fossa just posterior to the left cerebellar hemisphere just lateral to midline. This is likely a meningioma. Postcontrast imaging recommended. Multiple small prior infarcts Multifocal small-vessel ischemic change. No acute abnormality otherwise D/ / Amilcar Ragsdale / Amilcar Ragsdale Interpreting Provider: Amilcar Ragsdale Chest X-Ray 07/09/18 04:27 IMPRESSION: No acute cardiopulmonary disease. D/ / 07/09/2018 07:20:16 Mickey Cuellar MD / dez Interpreting Provider: Mickey Cuellar MD Active Medications Alprazolam (Xanax) 0.5 mg PO TID PRN; Protocol PRN Reason: Anxiety Stop: 01/08/19 12:56 Last Admin: 07/09/18 13:32 Dose: 0.5 mg Alprazolam (Xanax) 1.5 mg PO HS REPLACED BY [facility] PRN Reason: Protocol Stop: 01/08/19 21:01 Last Admin: 07/09/18 22:35 Dose: 1.5 mg Aspirin (Aspirin) 81 mg PO DAILY REPLACED BY [facility] Stop: 01/08/19 09:01 Last Admin: 07/10/18 07:53 Dose: 81 mg Atorvastatin Calcium (Lipitor) 80 mg PO HS REPLACED BY [facility] Stop: 01/08/19 21:01 Last Admin: 07/09/18 22:35 Dose: 80 mg Clopidogrel Bisulfate (Plavix) 75 mg PO DAILY REPLACED BY [facility] Stop: 01/08/19 09:01 Last Admin: 07/10/18 07:53 Dose: 75 mg Gadobutrol (Gadolinium Contrast Agent (Wt Based)) 1 each IV ONCE PRN; Protocol PRN Reason: SEE COMMENTS Stop: 07/12/18 08:35 Heparin Sodium (Porcine) (Heparin) 5,000 unit SQ Q12HCO ITZEL Stop: 01/08/19 06:01 Last Admin: 07/10/18 05:45 Dose: 5,000 unit Nicardipine HCl (Cardene Premix 40mg/200ml) 40 mg in 200 mls @ 25 mls/hr IVC .Q8H ITZEL; 5 MG/HR PRN Reason: Protocol Stop: 01/07/19 23:16 Last Admin: 07/10/18 07:46 Dose: Not Given Levothyroxine Sodium (Synthroid) 88 mcg PO 0630 ITZEL Stop: 01/08/19 06:31 Last Admin: 07/10/18 05:44 Dose: 88 mcg Lisinopril (Zestril) 10 mg PO DAILY ITZEL PRN Reason: Protocol Stop: 01/08/19 10:31 Last Admin: 07/10/18 07:53 Dose: 10 mg Metoprolol Tartrate (Lopressor) 50 mg PO BID ITZEL Stop: 01/08/19 21:01 Last Admin: 07/10/18 07:53 Dose: 50 mg Naloxone HCl (Narcan) 0.4 mg IVP Q2MIN PRN PRN Reason: SEE COMMENTS Stop: 01/08/19 03:00 Nitroglycerin (Nitroglycerin) 0.4 mg SL AD PRN PRN Reason: CHEST PAIN Stop: 01/08/19 03:07 Trazodone HCl (Trazodone) 100 mg PO HS ITZEL Stop: 01/08/19 21:01 Last Admin: 07/09/18 22:35 Dose: 100 mg Venlafaxine HCl (Effexor Xr) 300 mg PO DAILY ITZEL PRN Reason: Protocol Stop: 01/08/19 12:58 Last Admin: 07/10/18 07:53 Dose: 300 mg - Imaging and Cardiology Echo: report reviewed - EKG Interpretation EKG results cardiology: other (12 hr tele AVG HR 65, SR) Consult Discharge Plan - Plan Referrals: Roseline Salcido CNP [Primary Care Provider] - 07/16/18 10:30 am () Salbador Peoples DO [Partnered Physician] - (Office will call patient at home with follow up appointment)
[2018-07-10 16:28] VITALS: BP 164/98
[2018-07-10] MEDS: ALPRAZolam 0.5 MG TABLET PO PRN (17:00)
--- NOTE | 2018-07-10 17:04 | Discharge Summary ---
- NOTES TO OUTPATIENT PROVIDER Notes to Outpatient Provider: She is to follow-up in one year for repeat imaging for monitoring of meningioma Date of Encounter: 07/10/18 Time of Encounter: 11:00 - Discharge Diagnosis (1) Tobacco abuse Priority: Secondary Status: Chronic (2) Elevated troponin Priority: Secondary Status: Acute (3) Hypertensive emergency Priority: Primary Status: Acute (4) Paresthesia of right arm Priority: Primary Status: Resolved Hospital course: Patient is a 68-year-old female with past medical history significant for hyperlipidemia, hypertension and coronary arterial disease who presents to the ER on 07/08/18 due to numbness and paresthesias to her right arm and elevated blood pressure. She went to her PCP today who referred her to the ER due to uncontrolled blood pressure with a systolic in excess of 200. Workup in the ER revealed patient to have hypertensive emergency with positive troponins, headache, and right arm numbness and tingling. She was given a dose of labetalol and subsequently admitted to hospitalist service for further workup and care. During patients hospital stay her blood pressures were controlled after adjustments were made and hypertension regimen. An MRI revealed incidental finding of meningioma which can be followed up as an outpatient with repeat imaging in 1 year. She will be discharged to follow-up with primary care provider for hypertension management. - Time Spent with Patient Total time spent providing and/or coordinating discharge services: Less than 30 minutes - Discharge Medications Prescriptions: Lisinopril [Zestril] 10 mg PO DAILY #30 tablet Metoprolol [Lopressor] 50 mg PO BID #60 tablet Home Medications: Levothyroxine [Synthroid] 88 mcg PO DAILY 12/25/17 [History] Venlafaxine XR (24 HR) [Effexor Xr] 300 mg PO DAILY 12/25/17 [History] ALPRAZolam [Xanax 1 MG Tablet] 0.5 - 1 tab PO TID PRN 12/26/17 [History] Trazodone HCl 100 - 200 mg PO HS 12/26/17 [History] Aspirin 81 mg PO DAILY #30 tab.chew 12/29/17 [Rx] Atorvastatin [Lipitor] 80 mg PO HS #30 tablet 12/29/17 [Rx] Clopidogrel [Plavix] 75 mg PO DAILY #30 tablet 12/29/17 [Rx] Nitroglycerin [Nitrostat] 0.4 mg SL PRN PRN #30 tab.subl 12/29/17 [Rx] Lisinopril [Zestril] 10 mg PO DAILY #30 tablet 07/10/18 [Rx] Metoprolol [Lopressor] 50 mg PO BID #60 tablet 07/10/18 [Rx] Allergies/Adverse Reactions: 3 Allergy/AdvReac Type Severity Reaction Status Date / Time No Known Allergies Allergy Verified 07/08/18 20:08 Date of admission: 07/08/18 22:17 Primary care physician: Roseline Salcido Consults: 07/09/18 03:05 Consult to Physician [CONS] Routine Consulting Provider: Salbador Peoples Reason for Consult: + troponin Call Completed: No - Constitutional Vitals: Temp Pulse Resp BP Pulse Ox 97.9 F 72 17 164/98 96 07/10/18 11:09 07/10/18 16:23 07/10/18 16:23 07/10/18 16:23 07/10/18 07:21 General appearance: Present: cooperative, A&O X 3, pleasant, no acute distress, answers questions appropriately Exam: Gen.: Nonacute distress, alert and oriented 3 ENT: Mucosal membranes moist Respiratory: Lungs are clear to auscultation bilaterally without any wheezing rhonchi or rales Cardiovascular: Normal S1 and S2 regular rate rhythm no murmurs rubs or gallops Abdomen: Soft, nontender and nondistended with positive bowel sounds Extremities: No lower extremity edema Skin: Normal color - Patient Status Disposition: Home, Self-Care Condition: Good - Discharge Instructions Instructions: Coronary Artery Disease (DC), Hypertensive Crisis (DC) Follow Up With: Roseline Salcido CNP [Primary Care Provider] - 07/16/18 10:30 am () Salbador Peoples DO [Partnered Physician] - (Office will call patient at home with follow up appointment)
--- NOTE | 2018-07-11 17:58 | Electrocardiograph Report ---
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
--- NOTE | 2018-07-11 18:15 | Electrocardiograph Report ---
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
--- NOTE | 2018-07-11 18:15 | Electrocardiograph Report ---
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
== END 2018-07-10 18:11 | disposition home or self-care (01) ==
LOC: EMEROOARM 17:59 → 2NNU 17:59 → SUATTDRO 22:17 → 2NNU 22:38
PROVIDERS: ADMIT Pediatrics; ATTEND Hospitalist